=== PATIENT | male | born 1955 | race Caucasian/White ===

== ENCOUNTER → 2019-02-05 | Day surgery (SDC) | payer BC ==
[~2019-02-05] MED LIST: FENTANYL CITRATE/PF 100MCG/2 ML INJ ONE; GLUCAGON FOR INJ 1 MG VIAL ONE; HYOSCYAMINE 0.125 MG TAB ONE; MELOXICAM7.5 MG PO; MIDAZOLAM HCL 2 MG/2 ML VIAL ONE; MULTI-VITAMIN1 EACH; ONDANSETRON HCL INJ 2MG/ML 2ML 2 MG/ML VIAL ONE; PROPOFOL IV EMULSION 10 MG/ML 50 ML VIAL ONE; Z.0.OMEPRAZOLE40 MG PO
--- OUTSIDE RECORDS SUMMARY | 2019-02-05 06:04 | XMS REPORT | Continuity of Care Document ---
Author Author [employer] Organization [employer] Address Unknown Phone Unavailable Care Team Providers Care Geodesist Name Role Phone [employer] Unavailable Unavailable Problems Problem Status Onset Date Classification Date Reported Comments Source UTI Active 03/25/2015 [facility] ENLARGE PROSTATE W/URINARY RETENTION, IC Active 01/12/2015 [facility] ENLARGED PROSTATE Active 01/12/2015 [facility] URINE RETENTION Active 12/31/2014 [facility] ACUTE URINARY OBSTRCTION Active 12/31/2014 [facility] Final: Urinary tract infection, site not specified 03/31/2015 [facility] Bleeding hemorrhoids (disorder) Resolved Problem 03/31/2015 [facility] Polyp of colon (disorder) Active Problem 03/31/2015 [facility] Large prostate (finding) Active Problem 03/31/2015 [facility] Gastroesophageal reflux disease (disorder) Active Problem 03/31/2015 [facility] Rectal hemorrhage (disorder) Resolved Problem 03/31/2015 [facility] Final: 02/13/2015 [facility] BPH W URINARY OBS/LUTS Active [facility] URINARY TRACT INFECTION, SITE NOT SPECIF Active [facility] Medications Medication Details Route Status Patient Instructions Ordering Provider Order Date Source Saline Flush 0.9% 10 mL, Route: IVP, Drug Form: INJ, Dosing Weight 92.727, kg, Q8H, Start date: 03/28/15 16:00:00, Duration: 30 day, Stop date: 04/27/15 8:00:00Notes: (Same as: BD Posiflush) Inactive 03/28/2015 [facility] cefepime 2 gm, IVPB, [id number], 0 Refill(s) Active 03/28/2015 [facility] lidocaine 1% 50 mg, 5 mL, Route: INTRADERM, Drug Form: INJ, Dosing Weight 92.727, kg, ONCALL, Start date: 03/28/15 12:00:00, Duration: 30 day, Stop date: 04/27/15 10:59:00Notes: (Same as: Xylocaine) Inactive 03/28/2015 [facility] Saline Flush 0.9% 10 mL, Route: IVP, Drug Form: INJ, Dosing Weight 92.727, kg, PRN, PRN Line Flush, Start date: 03/28/15 11:22:00, Duration: 30 day, Stop date: 04/27/15 10:21:00Notes: (Same as: BD Posiflush) Inactive 03/28/2015 [facility] influenza virus vaccine, inactivated 0.5 mL, Route: IM, Drug Form: SUSP, Daily, Start date: 03/26/15 9:00:00, Duration: 1 doses or times, Stop date: 03/26/15 9:00:00Notes: (Same as: Fluzone Quadrivalent) For 3 years of age and older (0.5 mL IM) Shake well before use Inactive 03/26/2015 [facility] cefepime 2 gm, Route: IVPB, Drug form: INJ, [id number], Dosing Weight 92.727, kg, (CrCl 30 - 49 ml/min, LOG PREPARER infection or neutropenic fever), Start date: 03/25/15 20:00:00, Duration: 30 day, Stop date: 04/24/15 8:00 :00Notes: (Same as: Maxipime) MEDICATION WASTE Product Size: 2000 mg Product Wasted: ___ mg No Longer Active 03/26/2015 [facility] Acetaminophen 325 MG Oral Tablet [Tylenol] 325 mg=1 tab, PO, Q4H, PRN Pain Active 03/25/2015 [facility] Docusate 100 mg, 1 cap, Route: PO, Drug form: CAP, BID, Dosing Weight 92.727, kg, PRN Constipation, Start date: 03/25/15 12:45:00, Duration: 30 day, Stop date: 04/24/15 12:44:00Notes: (Same as: Colace) (Do Not Crush) No Longer Active 03/25/2015 [facility] Acetaminophen 650 mg, 2 tab, Route: PO, Drug form: TAB, Q6H, Dosing Weight 92.727, kg, PRN Pain 1-3/Temp > 100.4 F, Start date: 03/25/15 12:44:00, Duration: 30 day, Stop date: 04/24/15 12:43:00Notes: Do not exceed 4 gm/day. (Same as: Tylenol) No Longer Active 03/25/2015 [facility] hyoscyamine 0.125 mg sublingual tablet 0.125 mg=1 tab, SL, Q4H, PRN Bladder Spasm, # 126 tab, 0 Refill(s) Active 02/10/2015 [facility] docusate sodium 100 mg oral capsule 100 mg=1 cap, PO, BID, # 60 cap, 0 Refill(s) Active 02/10/2015 [facility] oxybutynin 5 mg oral tablet 5 mg=1 tab, PO, TID, # 30 tab, 0 Refill(s) Active 02/10/2015 [facility] Robaxin 1,000 mg, 2 tab, Route: PO, Drug form: TAB, Q8H, Dosing Weight 90.909, kg, Priority: NOW, Start date: 02/09/15 16:18:00, Duration: 30 day, Stop date: 03/11/15 16:00:00Notes: (Same as:Robaxin) No Longer Active 02/09/2015 [facility] Acetaminophen 325 MG / Hydrocodone Bitartrate 5 MG Oral Tablet [[place] 5/325] 2 tab, Route: PO, Drug Form: TAB, Dosing Weight 90.909, kg, Q4H, PRN Pain Score 7-10, Start date: 02/09/15 9:16:00, Duration: 30 day, Stop date: 03/11/15 9:15:00Notes: (Same as: [place] 325/5) Do not exceed 4gm/day of acetaminophen. No Longer Active 02/09/2015 [facility] Acetaminophen 325 MG / Hydrocodone Bitartrate 5 MG Oral Tablet [[place] 5/325] 1 tab, Route: PO, Drug Form: TAB, Dosing Weight 90.909, kg, Q4H, PRN Pain Score 4-6, Start date: 02/09/15 9:15:00, Duration: 30 day, Stop date: 03/11/15 9:14:00Notes: (Same as: [place] 325/5) Do not exceed 4gm/day of acetaminophen. No Longer Active 02/09/2015 [facility] Oxycodone Hydrochloride 5 MG Oral Tablet 10 mg, 2 tab, Route: PO, Drug form: TAB, Q4H, Dosing Weight 90.909, kg, PRN Pain Score 7-10, Start date: 02/09/15 5:41:00, Duration: 30 day, Stop date: 03/11/15 5:40:00Notes: (Same as: Roxicodone) Inactive 02/09/2015 [facility] Oxycodone Hydrochloride 5 MG Oral Tablet 5 mg, 1 tab, Route: PO, Drug form: TAB, Q4H, Dosing Weight 90.909, kg, PRN Pain Score 4-6, Start date: 02/09/15 5:40:00, Duration: 30 day, Stop date: 03/11/15 5:39:00Notes: (Same as: Roxicodone) Inactive 02/09/2015 [facility] nitrofurantoin macrocrystals-monohydrate 100 mg oral capsule (Macrobid) 100 mg=1 cap, PO, BID Active 02/09/2015 [facility] sennosides, ALF 17.2 mg, 2 tab, Route: PO, Drug Form: TAB, Dosing Weight 90.909, kg, Bedtime, Start date: 02/08/15 21:00:00, Duration: 30 day, Stop date: 03/09/15 21:00:00Notes: (Same as: Senokot) No Longer Active 02/09/2015 [facility] Tylenol 1,000 mg, 100 mL, Route: IV, Drug form: INJ, Q6H, Dosing Weight 90.909, kg, Start date: 02/08/15 18:00:00, Duration: 30 day, Stop date: 03/10/15 12:00:00Notes: Infuse over 15 minutes Do not exceed 4gm/day of acetaminophen MEDICATION WASTE Product Size: 1000 mg Product Wasted: ___ mg No Longer Active 02/08/2015 [facility] docusate sodium 100 mg oral capsule 100 mg, 1 cap, Route: PO, Drug form: CAP, BID, Dosing Weight 90.909, kg, Start date: 02/08/15 17:00:00, Duration: 30 day, Stop date: 03/10/15 9:00:00Notes: (Same as: Colace) (Do Not Crush) No Longer Active 02/08/2015 [facility] Docusate 100 mg, 1 cap, Route: PO, Drug form: CAP, BID, Dosing Weight 90.909, kg, Start date: 02/08/15 17:00:00, Duration: 30 day, Stop date: 03/10/15 9:00:00Notes: (Same as: Colace) (Do Not Crush) Inactive 02/08/2015 [facility] fosaprepitant + Sodium Chloride 0.9% IV 150 mL 150 mg, Route: IV, ONCE, Start date: 02/08/15 13:50:00, Stop date: 02/08/15 13:50:00Notes: Same as: Emjimmy MEDICATION WASTE Product Size: 150 mg Product Wasted: ___ mg Inactive 02/08/2015 [facility] Hydromorphone 0.5 mg, 0.25 mL, Route: IV, Drug form: INJ, Q5Min, Dosing Weight 90.909, kg, PRN Pain Score 6-10, Start date: 02/08/15 13:18:00, Duration: 4 doses or times, Stop date: 02/09/15 0:00:00Notes: Same as: Dilaudid Inactive 02/08/2015 [facility] aprepitant 150 mg, Route: IV, ONCE, Dosing Weight 90.909, kg, Start date: 02/08/15 13:02:00, Stop date: 02/08/15 13:02:00 Inactive 02/08/2015 [facility] Levsin SL 0.125 mg, 1 tab, Route: SL, Drug form: TAB, Q4H, Dosing Weight 90.909, kg, PRN Bladder Spasm, Priority: STAT, Start date: 02/08/15 12:21:00, Duration: 30 day, Stop date: 03/10/15 12:00:00Notes: (Same as: Levsin) Take 30 min before meal No Longer Active 02/08/2015 [facility] Ondansetron 4 mg, 2 mL, Route: IVP, Drug form: INJ, ONCE, Dosing Weight 90.909, kg, PRN Nausea & Vomiting, Start date: 02/08/15 12:03:00Notes: (Same as: Zofran) MEDICATION WASTE Product Size: 4 mg Product Wasted: ___ mg Inactive 02/08/2015 [facility] Naloxone 0.04 mg, 0.1 mL, Route: IVP, Drug form: INJ, Q2MIN, Dosing Weight 90.909, kg, PRN Narcotic Reversal, Start date: 02/08/15 12:03:00, Duration: 8 doses or times, Stop date: 02/09/15 0:00:00Notes: Same as Narcan Inactive 02/08/2015 [facility] Flumazenil 0.2 mg, 2 mL, Route: IVP, Drug form: INJ, PRN, Dosing Weight 90.909, kg, PRN Benzodiazepine Reversal, Initial dose, Start date: 02/08/15 12:03:00, Duration: 30 day, Stop date: 03/10/15 12:02:00Notes: (Same as: Romazicon) Inactive 02/08/2015 [facility] Clindamycin 600 mg, 4 mL, Route: IVPB, ABXQ8H, Dosing Weight 90.909, kg, Start date: 02/08/15 12:00:00, Duration: 3 doses or times, Stop date: 02/09/15 9:00:00Notes: (clindamycin 150 mg/1 ml (600 mg/4 ml VL) INJ) (Same As: Cleocin) No Longer Active 02/08/2015 [facility] Saline Flush 0.9% 10 ml, Route: IVP, Drug Form: INJ, Dosing Weight 90.909, kg, PRN, PRN Line Flush, Start date: 02/08/15 11:52:00, Duration: 30 day, Stop date: 03/10/15 11:51:00Notes: (Same as: BD Posiflush) No Longer Active 02/08/2015 [facility] Sodium Chloride 0.154 MEQ/ML Injectable Solution 1,000 mL, Rate: 75 ml/hr, Infuse over: 13.3 hr, Route: IV, Dosing Weight 90.909 kg, Total Volume: 1,000, Start date: 02/08/15 11:52:00, Duration: 30 day, Stop date: 03/10/15 11:51:00 No Longer Active 02/08/2015 [facility] Ondansetron 4 mg, 2 mL, Route: IVP, Drug form: INJ, Q6H, Dosing Weight 90.909, kg, PRN Nausea & Vomiting, Start date: 02/08/15 11:52:00, Duration: 30 day, Stop date: 03/10/15 11:51:00Notes: (Same as: Zofran) MEDICATION WASTE Product Size: 4 mg Product Wasted: ___ mg No Longer Active 02/08/2015 [facility] oxybutynin 5 mg, 1 tab, Route: PO, Drug form: TAB, TID, Dosing Weight 90.909, kg, Start date: 02/08/15 11:52:00, Duration: 30 day, Stop date: 03/10/15 13:00:00Notes: Same as: Ditropan) No Longer Active 02/08/2015 [facility] Gentamicin Sulfate (ALF) 210 mg, Route: IVPB, ONCE, Dosing Weight 90.909, kg, Start date: 02/08/15 9:21:00, Stop date: 02/08/15 9:21:00 Inactive 02/08/2015 [facility] Fentanyl / ropivacaine Route: EPIDURAL, Continuous Rate: 6, ml/hr, Infusion site: Thoracic, BIOPHYSICS TEACHER dose 3 mL, BIOPHYSICS TEACHER dose lockout: 30 minutes, 1 Hour limit: 18 mL, Clinician Bolus: 5.05 mL, 200, mL, Start date: 02/08/15 9:18:00, Duration: 30, day, Drug Form: INJ, Total volume: 20...Notes: (Same as Naropin-Sublimaze) No Longer Active 02/08/2015 [facility] Naloxone 0.1 mg, 0.25 mL, Route: IVP, Drug form: INJ, Q2MIN, Dosing Weight 90.909, kg, PRN Narcotic Reversal, Start date: 02/08/15 9:18:00, Duration: 8 doses or times, Stop date: 02/09/15 0:00:00Notes: Same as Narcan No Longer Active 02/08/2015 [facility] Ondansetron 4 mg, 2 mL, Route: IVP, Drug form: INJ, Q8H, Dosing Weight 90.909, kg, PRN Nausea & Vomiting, Start date: 02/08/15 9:17:00, Duration: 30 day, Stop date: 03/10/15 9:16:00Notes: (Same as: Zofran) MEDICATION WASTE Product Size: 4 mg Product Wasted: ___ mg Inactive 02/08/2015 [facility] Tramadol 50 mg, 1 tab, Route: PO, Drug form: TAB, Q6H, Dosing Weight 90.909, kg, PRN Pain Score 7-10, Start date: 02/08/15 9:17:00, Duration: 30 day, Stop date: 03/10/15 9:16:00Notes: Not to exceed 400mg/day. (Same As: Ultram) Inactive 02/08/2015 [facility] Acetaminophen 1,000 mg, 100 mL, Route: IVPB, Drug form: INJ, Q6H, Dosing Weight 90.909, kg, PRN Pain Score 4-6, Start date: 02/08/15 9:17:00, Duration: 30 day, Stop date: 03/10/15 9:16:00Notes: Infuse over 15 jasper madonna Do not exceed 4gm/day of acetaminophen MEDICATION WASTE Product Size: 1000 mg Product Wasted: ___ mg Inactive 02/08/2015 [facility] Clindamycin 600 mg, Route: IVPB, ONCE, Dosing Weight 90.909, kg, Start date: 02/08/15 9:09:00, Stop date: 02/08/15 9:09:00 Inactive 02/08/2015 [facility] Cleocin HCl + Sodium Chloride 0.9% IV 100 mL 600 mg, 4 mL, Route: IVPB, PRE OP, Priority: STAT, Start date: 02/08/15 7:18:00, Duration: 1 day, Stop date: 02/09/15 7:17:00Notes: (clindamycin 150 mg/1 ml (600 mg/4 ml VL) INJ) (Same As: Cleocin) No Longer Active 02/08/2015 [facility] Phenergan 12.5 mg, 0.5 mL, Route: IVPB, Drug form: INJ, ONCE, Dosing Weight 87.727, kg, PRN Nausea & Vomiting, Start date: 01/01/15 10:58:00, Stop date: 01/31/15 10:57:00Notes: Do not give IV push. (Same as: Phenergan) Inactive 01/01/2015 [facility] magnesium citrate 300 ml, Route: PO, Drug Form: LIQ, Dosing Weight 87.727, kg, ONCE, Start date: 01/01/15 10:12:00, Stop date: 01/01/15 10:12:00Notes: (Same as: Citrate of Magnesia) Inactive 01/01/2015 [facility] polyethylene glycol 3350 oral powder for reconstitution 17 gm, PO, Daily, X 14 day, # 255 gm, 0 Refill(s) Active 01/01/2015 [facility] tamsulosin 0.4 mg oral capsule 0.4 mg=1 cap, PO, Daily, # 30 cap, 0 Refill(s) Active 01/01/2015 [facility] acetaminophen 325 mg oral tablet 650 mg=2 tab, PO, Q4H, PRN Pain 1-3/Temp > 100.4 F, 0 Refill(s) Active 01/01/2015 [facility] Miralax 17 gm, 1 pkt, Route: PO, Drug form: PWDR, Daily, Dosing Weight 87.727, kg, Start date: 01/01/15 9:00:00, Duration: 30 day, Stop date: 01/30/15 9:00:00Notes: Dissolve in 8 oz of water or juice. (Same as: Miralax) Inactive 01/01/2015 [facility] 1/2 NS 1,000 mL 1,000 mL, Rate: 200 ml/hr, Infuse over: 5 hr, Route: IV, Dosing Weight 87.727 kg, Total Volume: 1,000, Start date: 12/31/14 22:53:00, Duration: 30 day, Stop date: 01/30/15 22:52:00 No Longer Active 01/01/2015 [facility] NS 1,000 mL 1,000 mL, Rate: 200 ml/hr, Infuse over: 5 hr, Route: IV, Dosing Weight 87.727 kg, Total Volume: 1,000, Start date: 12/31/14 22:36:00, Duration: 30 day, Stop date: 01/30/15 22:35:00 Inactive 01/01/2015 [facility] Acetaminophen 325 MG / Hydrocodone Bitartrate 5 MG Oral Tablet 1 tab, Route: PO, Drug Form: TAB, Dosing Weight 87.727, kg, Q4H, PRN Pain Score 4-6, Start date: 12/31/14 22:35:00, Duration: 30 day, Stop date: 01/30/15 22:34:00Notes: (Same as: [place] 325/5) Do not exceed 4gm/day of acetaminophen. No Longer Active 01/01/2015 [facility] Docusate 100 mg, 1 cap, Route: PO, Drug form: CAP, BID, Dosing Weight 87.727, kg, PRN Constipation, Start date: 12/31/14 22:35:00, Duration: 30 day, Stop date: 01/30/15 22:34:00Notes: (Same as: Colace) (Do Not Crush) No Longer Active 01/01/2015 [facility] Ondansetron 4 mg, 2 mL, Route: IVP, Drug form: INJ, Q6H, Dosing Weight 87.727, kg, PRN Nausea & Vomiting, Start date: 12/31/14 22:35:00, Duration: 30 day, Stop date: 01/30/15 22:34:00Notes: (Same as: Zofran) MEDICATION WASTE Product Size: 4 mg Product Wasted: ___ mg No Longer Active 01/01/2015 [facility] Acetaminophen 650 mg, 2 tab, Route: PO, Drug form: TAB, Q4H, Dosing Weight 87.727, kg, PRN Pain 1-3/Temp > 100.4 F, Start date: 12/31/14 22:35:00, Duration: 30 day, Stop date: 01/30/15 22:34:00Notes: Do not exceed 4 gm/day. (Same as: Tylenol) No Longer Active 01/01/2015 [facility] Flomax 0.4 mg, 1 cap, Route: PO, Drug form: CAP, Daily, Dosing Weight 91.364, kg, Start date: 12/31/14 21:46:00, Duration: 30 day, Stop date: 01/30/15 9:00:00Notes: (Same As: Flomax) "Do Not Crush" No Longer Active 01/01/2015 [facility] Sodium Chloride 0.154 MEQ/ML Injectable Solution 1,000 mL, 1,000 ml/hr, Infuse Over: 1 hr, Route: IV, 1,000, Drug form: INJ, ONCE, Priority: STAT, Dosing Weight 91.364 kg, Start date: 12/31/14 20:22:00, Duration: 1 doses or times, Stop date: 12/31/14 20:22:00 Inactive 01/01/2015 [facility] Zofran 4 mg, Route: IVP, Drug form: INJ, ONCE, Dosing Weight 91.364, kg, Priority: STAT, Start date: 12/31/14 18:21:00, Stop date: 12/31/14 18:21:00 Inactive 12/31/2014 [facility] Morphine 4 mg, Route: IVP, Drug form: INJ, ONCE, Dosing Weight 91.364, kg, Priority: STAT, Start date: 12/31/14 18:16:00, Stop date: 12/31/14 18:16:00 Inactive 12/31/2014 [facility] Allergies, Adverse Reactions, Alerts Substance Category Reaction Severity Reaction type Status Date Reported Comments Source Flomax Assertion SV^Severe Propensity to adverse reactions to drug Active [facility] penicillins Assertion Drug allergy Active [facility] ciprofloxacin Assertion Drug allergy Active [facility] Immunizations Immunization Date Given Site Status Last Updated Comments Source influenza virus vaccine, inactivated 03/26/2015 Right Deltoid completed Elengical [facility] Results Order Name Results Value Reference Range Date Interpretation Comments Source CHEM PANEL eGFR 72 03/27/2015 Result Comment: The eGFR is calculated using the CKD-EPI formula. In most young, healthy individuals the eGFR will be >90 mL/min/1.73m2. The eGFR declines with age. An eGFR of 60-89 may be normal in some populations, particularly the elderly, for whom the CKD-EPI formula has not been extensively validated. Use of the eGFR is not recommended in the following populations:

Individuals with unstable creatinine concentrations, including patients and those with serious co-morbid conditions.

Patients with extremes in muscle mass or diet.

The data above are obtained from the National Kidney Disease Education Program (NKDEP) which additionally recommends that when the eGFR is used in patients with extremes of body mass index for purposes of drug dosing, the eGFR should be multiplied by the estimated BMI. [facility] CHEM PANEL CO2 25 24 - 32 03/27/2015 [facility] CHEM PANEL BUN 14 7 - 22 03/27/2015 [facility] CHEM PANEL Glucose Lvl 93 70 - 99 03/27/2015 [facility] CHEM PANEL Creatinine Lvl 1.1 0.5 - 1.4 03/27/2015 [facility] CHEM PANEL Sodium Lvl 138 135 - 145 03/27/2015 [facility] CHEM PANEL Potassium Lvl 4.1 3.5 - 5.1 03/27/2015 [facility] CHEM PANEL Chloride Lvl 106 95 - 109 03/27/2015 [facility] CHEM PANEL Calcium Lvl 9.1 8.5 - 10.5 03/27/2015 [facility] CHEM PANEL AGAP 11.1 10.0 - 20.0 03/27/2015 [facility] HEMATOLOGY Basophils 0.5 0.0 - 1.0 03/27/2015 [facility] HEMATOLOGY Eosinophils 2.9 0.0 - 4.0 03/27/2015 [facility] HEMATOLOGY Eosinophils # 0.2 0.0 - 0.5 03/27/2015 [facility] HEMATOLOGY Monocytes # 0.7 0.0 - 0.8 03/27/2015 [facility] HEMATOLOGY Lymphocytes # 1.5 1.0 - 5.5 03/27/2015 [facility] HEMATOLOGY Segs-Bands # 4.3 1.5 - 8.1 03/27/2015 [facility] HEMATOLOGY Segs 63.3 45.0 - 75.0 03/27/2015 [facility] HEMATOLOGY Lymphocytes 22.8 20.0 - 40.0 03/27/2015 [facility] HEMATOLOGY Monocytes 10.5 2.0 - 12.0 03/27/2015 [facility] HEMATOLOGY MCH 30.5 27.0 - 31.0 03/27/2015 [facility] HEMATOLOGY MCV 91.6 80.0 - 94.0 03/27/2015 [facility] HEMATOLOGY RDW 13.6 11.5 - 14.5 03/27/2015 [facility] HEMATOLOGY Platelet 149 133 - 450 03/27/2015 [facility] HEMATOLOGY MPV 9.7 7.4 - 10.4 03/27/2015 [facility] HEMATOLOGY MCHC 33.2 32.0 - 36.0 03/27/2015 [facility] HEMATOLOGY Hgb 16.9 14.0 - 18.0 03/27/2015 [facility] HEMATOLOGY WBC 6.8 3.7 - 10.4 03/27/2015 [facility] HEMATOLOGY RBC 5.53 4.70 - 6.10 03/27/2015 [facility] HEMATOLOGY Hct 50.7 42.0 - 54.0 03/27/2015 [facility] ELECTROLYTES AGAP 13.0 10.0 - 20.0 03/26/2015 [facility] ELECTROLYTES eGFR 85 03/26/2015 Result Comment: The eGFR is calculated using the CKD-EPI formula. In most young, healthy individuals the eGFR will be >90 mL/min/1.73m2. The eGFR declines with age. An eGFR of 60-89 may be normal in some populations, particularly the elderly, for whom the CKD-EPI formula has not been extensively validated. Use of the eGFR is not recommended in the following populations:

Individuals with unstable creatinine concentrations, including patients and those with serious co-morbid conditions.

Patients with extremes in muscle mass or diet.

The data above are obtained from the National Kidney Disease Education Program (NKDEP) which additionally recommends that when the eGFR is used in patients with extremes of body mass index for purposes of drug dosing, the eGFR should be multiplied by the estimated BMI. [facility] ELECTROLYTES Potassium Lvl 4.0 3.5 - 5.1 03/26/2015 [facility] ELECTROLYTES Sodium Lvl 138 135 - 145 03/26/2015 [facility] ELECTROLYTES Chloride Lvl 106 95 - 109 03/26/2015 [facility] ELECTROLYTES CO2 23 24 - 32 03/26/2015 [facility] ELECTROLYTES Calcium Lvl 9.1 8.5 - 10.5 03/26/2015 [facility] ELECTROLYTES Creatinine Lvl 1.0 0.5 - 1.4 03/26/2015 [facility] ELECTROLYTES Glucose Lvl 97 70 - 99 03/26/2015 [facility] ELECTROLYTES BUN 16 7 - 22 03/26/2015 [facility] HEMATOLOGY Monocytes # 0.5 0.0 - 0.8 03/26/2015 [facility] HEMATOLOGY Lymphocytes # 1.4 1.0 - 5.5 03/26/2015 [facility] HEMATOLOGY Segs-Bands # 3.1 1.5 - 8.1 03/26/2015 [facility] HEMATOLOGY Eosinophils # 0.2 0.0 - 0.5 03/26/2015 [facility] HEMATOLOGY Monocytes 10.2 2.0 - 12.0 03/26/2015 [facility] HEMATOLOGY Basophils 0.6 0.0 - 1.0 03/26/2015 [facility] HEMATOLOGY Eosinophils 3.7 0.0 - 4.0 03/26/2015 [facility] HEMATOLOGY Lymphocytes 27.1 20.0 - 40.0 03/26/2015 [facility] HEMATOLOGY Segs 58.4 45.0 - 75.0 03/26/2015 [facility] HEMATOLOGY Platelet 141 133 - 450 03/26/2015 [facility] HEMATOLOGY RDW 13.6 11.5 - 14.5 03/26/2015 [facility] HEMATOLOGY MCHC 33.3 32.0 - 36.0 03/26/2015 [facility] HEMATOLOGY MPV 9.8 7.4 - 10.4 03/26/2015 [facility] HEMATOLOGY MCV 90.0 80.0 - 94.0 03/26/2015 [facility] HEMATOLOGY MCH 30.0 27.0 - 31.0 03/26/2015 [facility] HEMATOLOGY Hct 48.0 42.0 - 54.0 03/26/2015 [facility] HEMATOLOGY RBC 5.33 4.70 - 6.10 03/26/2015 [facility] HEMATOLOGY WBC 5.3 3.7 - 10.4 03/26/2015 [facility] [facility] HEMATOLOGY Hgb 16.0 14.0 - 18.0 03/26/2015 [facility] URINE AND STOOL UA Urobilinogen <=1.0 mg/dL 0.1 - 1.0 03/25/2015 [facility] URINE AND STOOL UA Sq Epi None Seen 03/25/2015 [facility] URINE AND STOOL UA Mucus Few /LPF None Seen /LPF 03/25/2015 [facility] URINE AND STOOL UA RBC 58 0 - 2 03/25/2015 [facility] URINE AND STOOL UA WBC 32 0 - 5 03/25/2015 [facility] URINE AND STOOL UA pH 7.0 5.0 - 8.0 03/25/2015 [facility] URINE AND STOOL UA Spec Grav 1.006 <=1.030 03/25/2015 [facility] URINE AND STOOL UA Turbidity Clear (03/25/15 3:04 PM) Clear 03/25/2015 [facility] URINE AND STOOL UA Color Light Yellow *NA* (03/25/15 3:04 PM) Yellow 03/25/2015 [facility] URINE AND STOOL UA Blood Moderate *ABN* (03/25/15 3:04 PM) Negative 03/25/2015 [facility] URINE AND STOOL UA Bili Negative *NA* (03/25/15 3:04 PM) Negative 03/25/2015 [facility] URINE AND STOOL UA Ketones Negative mg/dL Negative mg/dL 03/25/2015 [facility] URINE AND STOOL UA Glucose Negative mg/dL Negative mg/dL 03/25/2015 [facility] URINE AND STOOL UA Protein Negative mg/dL Negative mg/dL 03/25/2015 [facility] URINE AND STOOL UA Nitrite Negative (03/25/15 3:04 PM) Negative 03/25/2015 [facility] URINE AND STOOL UA Leuk Est Moderate *ABN* (03/25/15 3:04 PM) Negative 03/25/2015 [facility] CHEM PANEL eGFR 83 03/25/2015 Result Comment: The eGFR is calculated using the CKD-EPI formula. In most young, healthy individuals the eGFR will be >90 mL/min/1.73m2. The eGFR declines with age. An eGFR of 60-89 may be normal in some populations, particularly the elderly, for whom the CKD-EPI formula has not been extensively validated. Use of the eGFR is not recommended in the following populations:

Individuals with unstable creatinine concentrations, including patients and those with serious co-morbid conditions.

Patients with extremes in muscle mass or diet.

The data above are obtained from the National Kidney Disease Education Program (NKDEP) which additionally recommends that when the eGFR is used in patients with extremes of body mass index for purposes of drug dosing, the eGFR should be multiplied by the estimated BMI. [facility] CHEM PANEL Calcium Lvl 8.9 8.5 - 10.5 03/25/2015 [facility] CHEM PANEL CO2 23 24 - 32 03/25/2015 [facility] CHEM PANEL BUN 18 7 - 22 03/25/2015 [facility] CHEM PANEL Creatinine Lvl 1.0 0.5 - 1.4 03/25/2015 [facility] CHEM PANEL Sodium Lvl 140 135 - 145 03/25/2015 [facility] CHEM PANEL Potassium Lvl 4.0 3.5 - 5.1 03/25/2015 [facility] CHEM PANEL Chloride Lvl 108 95 - 109 03/25/2015 [facility] CHEM PANEL Glucose Lvl 91 70 - 99 03/25/2015 [facility] CHEM PANEL AGAP 13.0 10.0 - 20.0 03/25/2015 [facility] HEMATOLOGY MPV 10.2 7.4 - 10.4 03/25/2015 [facility] HEMATOLOGY RDW 13.2 11.5 - 14.5 03/25/2015 [facility] HEMATOLOGY MCV 90.3 80.0 - 94.0 03/25/2015 [facility] HEMATOLOGY Platelet 141 133 - 450 03/25/2015 [facility] HEMATOLOGY Hct 45.9 42.0 - 54.0 03/25/2015 [facility] HEMATOLOGY MCH 29.4 27.0 - 31.0 03/25/2015 [facility] HEMATOLOGY WBC 6.0 3.7 - 10.4 03/25/2015 [facility] HEMATOLOGY MCHC 32.6 32.0 - 36.0 03/25/2015 [facility] HEMATOLOGY Hgb 15.0 14.0 - 18.0 03/25/2015 [facility] HEMATOLOGY RBC 5.08 4.70 - 6.10 03/25/2015 [facility] HEMATOLOGY Eosinophils # 0.2 0.0 - 0.5 03/25/2015 [facility] HEMATOLOGY Lymphocytes # 1.4 1.0 - 5.5 03/25/2015 [facility] HEMATOLOGY Monocytes # 0.5 0.0 - 0.8 03/25/2015 [facility] HEMATOLOGY Lymphocytes 23.0 20.0 - 40.0 03/25/2015 [facility] HEMATOLOGY Monocytes 8.3 2.0 - 12.0 03/25/2015 [facility] HEMATOLOGY Eosinophils 3.0 0.0 - 4.0 03/25/2015 [facility] HEMATOLOGY Segs-Bands # 3.9 1.5 - 8.1 03/25/2015 [facility] HEMATOLOGY Basophils 0.7 0.0 - 1.0 03/25/2015 [facility] HEMATOLOGY Segs 65.0 45.0 - 75.0 03/25/2015 [facility] CHEM PANEL Magnesium Lvl 2.1 1.8 - 2.4 02/10/2015 [facility] CHEM PANEL Phosphorus 3.6 2.5 - 4.5 02/10/2015 [facility] CHEM PANEL eGFR 60 02/10/2015 Result Comment: The eGFR is calculated using the CKD-EPI formula. In most young, healthy individuals the eGFR will be >90 mL/min/1.73m2. The eGFR declines with age. An eGFR of 60-89 may be normal in some populations, particularly the elderly, for whom the CKD-EPI formula has not been extensively validated. Use of the eGFR is not recommended in the following populations:

Individuals with unstable creatinine concentrations, including patients and those with serious co-morbid conditions.

Patients with extremes in muscle mass or diet.

The data above are obtained from the National Kidney Disease Education Program (NKDEP) which additionally recommends that when the eGFR is used in patients with extremes of body mass index for purposes of drug dosing, the eGFR should be multiplied by the estimated BMI. [facility] CHEM PANEL Calcium Lvl 8.8 8.5 - 10.5 02/10/2015 [facility] CHEM PANEL Chloride Lvl 107 95 - 109 02/10/2015 [facility] CHEM PANEL CO2 24 24 - 32 02/10/2015 [facility] CHEM PANEL Sodium Lvl 139 135 - 145 02/10/2015 [facility] CHEM PANEL Potassium Lvl 4.1 3.5 - 5.1 02/10/2015 [facility] CHEM PANEL Creatinine Lvl 1.3 0.5 - 1.4 02/10/2015 [facility] CHEM PANEL Glucose Lvl 99 70 - 99 02/10/2015 [facility] CHEM PANEL BUN 19 7 - 22 02/10/2015 [facility] CHEM PANEL AGAP 12.1 10.0 - 20.0 02/10/2015 [facility] HEMATOLOGY Platelet 132 133 - 450 02/10/2015 [facility] HEMATOLOGY MCHC 33.8 32.0 - 36.0 02/10/2015 [facility] HEMATOLOGY RDW 13.7 11.5 - 14.5 02/10/2015 [facility] HEMATOLOGY MPV 10.8 7.4 - 10.4 02/10/2015 [facility] HEMATOLOGY MCH 30.7 27.0 - 31.0 02/10/2015 [facility] HEMATOLOGY MCV 90.7 80.0 - 94.0 02/10/2015 [facility] HEMATOLOGY Hct 36.9 42.0 - 54.0 02/10/2015 [facility] HEMATOLOGY RBC 4.07 4.70 - 6.10 02/10/2015 [facility] HEMATOLOGY Hgb 12.5 14.0 - 18.0 02/10/2015 [facility] HEMATOLOGY WBC 10.8 3.7 - 10.4 02/10/2015 [facility] HEMATOLOGY Lymphocytes # 1.2 1.0 - 5.5 02/10/2015 [facility] HEMATOLOGY Monocytes # 0.9 0.0 - 0.8 02/10/2015 [facility] HEMATOLOGY Monocytes 8.7 2.0 - 12.0 02/10/2015 [facility] HEMATOLOGY Eosinophils 0.4 0.0 - 4.0 02/10/2015 [facility] HEMATOLOGY Basophils 0.1 0.0 - 1.0 02/10/2015 [facility] HEMATOLOGY Segs-Bands # 8.6 1.5 - 8.1 02/10/2015 [facility] HEMATOLOGY Segs 79.6 45.0 - 75.0 02/10/2015 [facility] HEMATOLOGY Lymphocytes 11.2 20.0 - 40.0 02/10/2015 [facility] CHEM PANEL eGFR 66 02/09/2015 Result Comment: The eGFR is calculated using the CKD-EPI formula. In most young, healthy individuals the eGFR will be >90 mL/min/1.73m2. The eGFR declines with age. An eGFR of 60-89 may be normal in some populations, particularly the elderly, for whom the CKD-EPI formula has not been extensively validated. Use of the eGFR is not recommended in the following populations:

Individuals with unstable creatinine concentrations, including patients and those with serious co-morbid conditions.

Patients with extremes in muscle mass or diet.

The data above are obtained from the National Kidney Disease Education Program (NKDEP) which additionally recommends that when the eGFR is used in patients with extremes of body mass index for purposes of drug dosing, the eGFR should be multiplied by the estimated BMI. [facility] CHEM PANEL Glucose Lvl 116 70 - 99 02/09/2015 [facility] CHEM PANEL BUN 16 7 - 22 02/09/2015 [facility] CHEM PANEL Creatinine Lvl 1.2 0.5 - 1.4 02/09/2015 [facility] CHEM PANEL Sodium Lvl 137 135 - 145 02/09/2015 [facility] CHEM PANEL Chloride Lvl 103 95 - 109 02/09/2015 [facility] CHEM PANEL CO2 22 24 - 32 02/09/2015 [facility] CHEM PANEL Potassium Lvl 4.5 3.5 - 5.1 02/09/2015 [facility] CHEM PANEL Calcium Lvl 8.8 8.5 - 10.5 02/09/2015 [facility] CHEM PANEL AGAP 16.5 10.0 - 20.0 02/09/2015 [facility] HEMATOLOGY WBC 15.7 3.7 - 10.4 02/09/2015 [facility] HEMATOLOGY Hgb 13.5 14.0 - 18.0 02/09/2015 [facility] HEMATOLOGY RBC 4.48 4.70 - 6.10 02/09/2015 [facility] HEMATOLOGY Hct 41.7 42.0 - 54.0 02/09/2015 [facility] HEMATOLOGY MCV 92.9 80.0 - 94.0 02/09/2015 [facility] HEMATOLOGY MCHC 32.4 32.0 - 36.0 02/09/2015 [facility] HEMATOLOGY MCH 30.1 27.0 - 31.0 02/09/2015 [facility] HEMATOLOGY Platelet 145 133 - 450 02/09/2015 [facility] HEMATOLOGY RDW 13.8 11.5 - 14.5 02/09/2015 [facility] HEMATOLOGY MPV 10.1 7.4 - 10.4 02/09/2015 [facility] HEMATOLOGY Segs-Bands # 14.2 1.5 - 8.1 02/09/2015 [facility] HEMATOLOGY Basophils 0.1 0.0 - 1.0 02/09/2015 [facility] HEMATOLOGY Monocytes 4.9 2.0 - 12.0 02/09/2015 [facility] HEMATOLOGY Lymphocytes 5.0 20.0 - 40.0 02/09/2015 [facility] HEMATOLOGY Segs 90.0 45.0 - 75.0 02/09/2015 [facility] HEMATOLOGY Monocytes # 0.8 0.0 - 0.8 02/09/2015 [facility] HEMATOLOGY Lymphocytes # 0.8 1.0 - 5.5 02/09/2015 [facility] CHEM PANEL eGFR 66 02/08/2015 Result Comment: The eGFR is calculated using the CKD-EPI formula. In most young, healthy individuals the eGFR will be >90 mL/min/1.73m2. The eGFR declines with age. An eGFR of 60-89 may be normal in some populations, particularly the elderly, for whom the CKD-EPI formula has not been extensively validated. Use of the eGFR is not recommended in the following populations:

Individuals with unstable creatinine concentrations, including patients and those with serious co-morbid conditions.

Patients with extremes in muscle mass or diet.

The data above are obtained from the National Kidney Disease Education Program (NKDEP) which additionally recommends that when the eGFR is used in patients with extremes of body mass index for purposes of drug dosing, the eGFR should be multiplied by the estimated BMI. [facility] CHEM PANEL Chloride Lvl 107 95 - 109 02/08/2015 [facility] CHEM PANEL CO2 25 24 - 32 02/08/2015 [facility] CHEM PANEL Sodium Lvl 142 135 - 145 02/08/2015 [facility] CHEM PANEL Potassium Lvl 3.7 3.5 - 5.1 02/08/2015 [facility] CHEM PANEL AGAP 13.7 10.0 - 20.0 02/08/2015 [facility] CHEM PANEL Calcium Lvl 8.2 8.5 - 10.5 02/08/2015 [facility] CHEM PANEL Glucose Lvl 149 70 - 99 02/08/2015 [facility] CHEM PANEL BUN 15 7 - 22 02/08/2015 [facility] CHEM PANEL Creatinine Lvl 1.2 0.5 - 1.4 02/08/2015 [facility] HEMATOLOGY RDW 13.9 11.5 - 14.5 02/08/2015 [facility] HEMATOLOGY MCHC 33.3 32.0 - 36.0 02/08/2015 [facility] HEMATOLOGY MCV 90.9 80.0 - 94.0 02/08/2015 [facility] HEMATOLOGY MCH 30.3 27.0 - 31.0 02/08/2015 [facility] HEMATOLOGY MPV 10.7 7.4 - 10.4 02/08/2015 [facility] HEMATOLOGY Platelet 155 133 - 450 02/08/2015 [facility] HEMATOLOGY WBC 13.8 3.7 - 10.4 02/08/2015 [facility] HEMATOLOGY RBC 4.69 4.70 - 6.10 02/08/2015 [facility] HEMATOLOGY Hct 42.6 42.0 - 54.0 02/08/2015 [facility] HEMATOLOGY Hgb 14.2 14.0 - 18.0 02/08/2015 [facility] HEMATOLOGY Monocytes 2.9 2.0 - 12.0 02/08/2015 [facility] HEMATOLOGY Segs 85.9 45.0 - 75.0 02/08/2015 [facility] HEMATOLOGY Lymphocytes 10.4 20.0 - 40.0 02/08/2015 [facility] HEMATOLOGY Monocytes # 0.4 0.0 - 0.8 02/08/2015 [facility] HEMATOLOGY Eosinophils # 0.1 0.0 - 0.5 02/08/2015 [facility] HEMATOLOGY Basophils 0.3 0.0 - 1.0 02/08/2015 [facility] HEMATOLOGY Segs-Bands # 11.9 1.5 - 8.1 02/08/2015 [facility] HEMATOLOGY Eosinophils 0.5 0.0 - 4.0 02/08/2015 [facility] HEMATOLOGY Lymphocytes # 1.4 1.0 - 5.5 02/08/2015 [facility] BLOOD BANK RESULTS ABO/Rh O POS 02/08/2015 [facility] BLOOD BANK RESULTS Antibody Scrn Negative (02/08/15 6:41 AM) 02/08/2015 [facility] BLOOD BANK RESULTS FFP product Product available (02/08/15 6:40 AM) 02/08/2015 [facility] BLOOD BANK RESULTS RBC product Product available (02/08/15 6:40 AM) 02/08/2015 [facility] CHEM PANEL B/C Ratio 17 6 - 25 01/31/2015 [facility] CHEM PANEL Globulin 2.9 2.0 - 4.0 01/31/2015 [facility] CHEM PANEL A/G Ratio 1.3 0.7 - 1.6 01/31/2015 [facility] CHEM PANEL Bili Total 0.9 0.2 - 1.3 01/31/2015 [facility] CHEM PANEL Alk Phos 43 39 - 136 01/31/2015 [facility] CHEM PANEL ALT 26 0 - 65 01/31/2015 [facility] CHEM PANEL Albumin Lvl 3.8 3.5 - 5.0 01/31/2015 [facility] CHEM PANEL Total Protein 6.7 6.4 - 8.4 01/31/2015 [facility] CHEM PANEL AST 17 0 - 37 01/31/2015 [facility] CHEM PANEL Magnesium Lvl 2.1 1.8 - 2.4 01/31/2015 [facility] HEMATOLOGY Eosinophils 1.7 0.0 - 4.0 01/31/2015 [facility] HEMATOLOGY Eosinophils # 0.1 0.0 - 0.5 01/31/2015 [facility] HEMATOLOGY PT 14.2 12.0 - 14.7 01/31/2015 [facility] HEMATOLOGY PTT 32.2 22.9 - 35.8 01/31/2015 [facility] HEMATOLOGY INR 1.07 0.85 - 1.17 01/31/2015 [facility] CHEM PANEL eGFR 43 01/01/2015 Result Comment: The eGFR is calculated using the CKD-EPI formula. In most young, healthy individuals the eGFR will be >90 mL/min/1.73m2. The eGFR declines with age. An eGFR of 60-89 may be normal in some populations, particularly the elderly, for whom the CKD-EPI formula has not been extensively validated. Use of the eGFR is not recommended in the following populations:

Individuals with unstable creatinine concentrations, including patients and those with serious co-morbid conditions.

Patients with extremes in muscle mass or diet.

The data above are obtained from the National Kidney Disease Education Program (NKDEP) which additionally recommends that when the eGFR is used in patients with extremes of body mass index for purposes of drug dosing, the eGFR should be multiplied by the estimated BMI. [facility] CHEM PANEL Calcium Lvl 9.0 8.5 - 10.5 01/01/2015 [facility] CHEM PANEL AGAP 14.4 10.0 - 20.0 01/01/2015 [facility] CHEM PANEL Potassium Lvl 4.4 3.5 - 5.1 01/01/2015 [facility] CHEM PANEL Sodium Lvl 145 135 - 145 01/01/2015 [facility] CHEM PANEL Chloride Lvl 116 95 - 109 01/01/2015 [facility] CHEM PANEL Glucose Lvl 108 70 - 99 01/01/2015 [facility] CHEM PANEL CO2 19 24 - 32 01/01/2015 [facility] CHEM PANEL Creatinine Lvl 1.7 0.5 - 1.4 01/01/2015 [facility] CHEM PANEL BUN 29 7 - 22 01/01/2015 [facility] CHEM PANEL Phosphorus 3.0 2.5 - 4.5 01/01/2015 [facility] CHEM PANEL Magnesium Lvl 1.9 1.8 - 2.4 01/01/2015 [facility] HEMATOLOGY RBC 5.29 4.70 - 6.10 01/01/2015 [facility] HEMATOLOGY Hct 47.1 42.0 - 54.0 01/01/2015 [facility] HEMATOLOGY Hgb 16.2 14.0 - 18.0 01/01/2015 [facility] HEMATOLOGY MCH 30.5 27.0 - 31.0 01/01/2015 [facility] HEMATOLOGY MCV 88.9 80.0 - 94.0 01/01/2015 [facility] HEMATOLOGY RDW 13.1 11.5 - 14.5 01/01/2015 [facility] HEMATOLOGY MCHC 34.3 32.0 - 36.0 01/01/2015 [facility] HEMATOLOGY MPV 9.5 7.4 - 10.4 01/01/2015 [facility] HEMATOLOGY Platelet 145 133 - 450 01/01/2015 [facility] HEMATOLOGY WBC 10.1 3.7 - 10.4 01/01/2015 [facility] HEMATOLOGY Eosinophils # 0.3 0.0 - 0.5 01/01/2015 [facility] HEMATOLOGY Monocytes 10.9 2.0 - 12.0 01/01/2015 [facility] HEMATOLOGY Lymphocytes 15.9 20.0 - 40.0 01/01/2015 [facility] HEMATOLOGY Segs 70.2 45.0 - 75.0 01/01/2015 [facility] HEMATOLOGY Eosinophils 2.5 0.0 - 4.0 01/01/2015 [facility] HEMATOLOGY Basophils 0.5 0.0 - 1.0 01/01/2015 [facility] HEMATOLOGY Monocytes # 1.1 0.0 - 0.8 01/01/2015 [facility] HEMATOLOGY Segs-Bands # 7.1 1.5 - 8.1 01/01/2015 [facility] HEMATOLOGY Lymphocytes # 1.6 1.0 - 5.5 01/01/2015 [facility] CHEM PANEL Albumin Lvl 4.5 3.5 - 5.0 12/31/2014 [facility] CHEM PANEL AST 45 0 - 37 12/31/2014 [facility] CHEM PANEL ALT 35 0 - 65 12/31/2014 [facility] CHEM PANEL Alk Phos 46 39 - 136 12/31/2014 [facility] CHEM PANEL Bili Total 0.8 0.2 - 1.3 12/31/2014 [facility] CHEM PANEL Bili Direct 0.1 0.0 - 0.3 12/31/2014 [facility] CHEM PANEL Total Protein 8.4 6.4 - 8.4 12/31/2014 [facility] CHEM PANEL Globulin 3.9 2.0 - 4.0 12/31/2014 [facility] CHEM PANEL A/G Ratio 1.2 0.7 - 1.6 12/31/2014 [facility] CHEM PANEL Bili Indirect 0.7 0.0 - 1.0 12/31/2014 [facility] CHEM PANEL eGFR 11 12/31/2014 Result Comment: The eGFR is calculated using the CKD-EPI formula. In most young, healthy individuals the eGFR will be >90 mL/min/1.73m2. The eGFR declines with age. An eGFR of 60-89 may be normal in some populations, particularly the elderly, for whom the CKD-EPI formula has not been extensively validated. Use of the eGFR is not recommended in the following populations:

Individuals with unstable creatinine concentrations, including patients and those with serious co-morbid conditions.

Patients with extremes in muscle mass or diet.

The data above are obtained from the National Kidney Disease Education Program (NKDEP) which additionally recommends that when the eGFR is used in patients with extremes of body mass index for purposes of drug dosing, the eGFR should be multiplied by the estimated BMI. [facility] CHEM PANEL CO2 20 24 - 32 12/31/2014 [facility] CHEM PANEL Calcium Lvl 10.5 8.5 - 10.5 12/31/2014 [facility] CHEM PANEL Chloride Lvl 112 95 - 109 12/31/2014 [facility] CHEM PANEL Potassium Lvl 5.0 3.5 - 5.1 12/31/2014 [facility] CHEM PANEL Sodium Lvl 147 135 - 145 12/31/2014 [facility] CHEM PANEL BUN 64 7 - 22 12/31/2014 [facility] CHEM PANEL Creatinine Lvl 5.3 0.5 - 1.4 12/31/2014 [facility] CHEM PANEL Glucose Lvl 101 70 - 99 12/31/2014 [facility] CHEM PANEL AGAP 20.0 10.0 - 20.0 12/31/2014 [facility] HEMATOLOGY MPV 9.4 7.4 - 10.4 12/31/2014 [facility] HEMATOLOGY WBC 10.5 3.7 - 10.4 12/31/2014 [facility] HEMATOLOGY RBC 5.68 4.70 - 6.10 12/31/2014 [facility] HEMATOLOGY MCV 91.6 80.0 - 94.0 12/31/2014 [facility] HEMATOLOGY MCH 30.7 27.0 - 31.0 12/31/2014 [facility] HEMATOLOGY MCHC 33.5 32.0 - 36.0 12/31/2014 [facility] HEMATOLOGY Hgb 17.4 14.0 - 18.0 12/31/2014 [facility] HEMATOLOGY Hct 52.0 42.0 - 54.0 12/31/2014 [facility] HEMATOLOGY RDW 13.0 11.5 - 14.5 12/31/2014 [facility] HEMATOLOGY Platelet 153 133 - 450 12/31/2014 [facility] HEMATOLOGY Segs 79.0 45.0 - 75.0 12/31/2014 [facility] HEMATOLOGY Eosinophils # 0.3 0.0 - 0.5 12/31/2014 [facility] HEMATOLOGY Segs-Bands # 8.3 1.5 - 8.1 12/31/2014 [facility] HEMATOLOGY Eosinophils 2.7 0.0 - 4.0 12/31/2014 [facility] HEMATOLOGY Basophils 0.4 0.0 - 1.0 12/31/2014 [facility] HEMATOLOGY Lymphocytes # 1.1 1.0 - 5.5 12/31/2014 [facility] HEMATOLOGY Monocytes # 0.8 0.0 - 0.8 12/31/2014 [facility] HEMATOLOGY Lymphocytes 10.2 20.0 - 40.0 12/31/2014 [facility] HEMATOLOGY Monocytes 7.7 2.0 - 12.0 12/31/2014 [facility] URINE AND STOOL UA Color Yellow *NA* (12/31/14 1:21 PM) Yellow 12/31/2014 [facility] URINE AND STOOL UA Bili Negative *NA* (12/31/14 1:21 PM) Negative 12/31/2014 [facility] URINE AND STOOL UA Ketones Negative *NA* (12/31/14 1:21 PM) Negative 12/31/2014 [facility] URINE AND STOOL UA Glucose Negative (12/31/14 1:21 PM) Negative 12/31/2014 [facility] URINE AND STOOL UA Blood Trace *ABN* (12/31/14 1:21 PM) Negative 12/31/2014 [facility] URINE AND STOOL UA Urobilinogen 0.2 0.1 - 1.0 12/31/2014 [facility] URINE AND STOOL UA Nitrite Negative (12/31/14 1:21 PM) Negative 12/31/2014 [facility] URINE AND STOOL UA Spec Grav 1.010 <=1.030 12/31/2014 [facility] URINE AND STOOL UA Turbidity Clear (12/31/14 1:21 PM) Clear 12/31/2014 [facility] URINE AND STOOL UA pH 6.0 5.0 - 8.0 12/31/2014 [facility] URINE AND STOOL UA Protein Negative (12/31/14 1:21 PM) Negative 12/31/2014 [facility] URINE AND STOOL UA Leuk Est Negative (12/31/14 1:21 PM) Negative 12/31/2014 [facility] URINE AND STOOL Micro? Performed (12/31/14 1:21 PM) 12/31/2014 [facility] URINE AND STOOL UA RBC 0-2 /HPF 0 - 2 12/31/2014 [facility] URINE AND STOOL UA Bacteria Occasional /HPF None Seen /HPF 12/31/2014 [facility] URINE AND STOOL UA WBC 0-2 /HPF None Seen /HPF 12/31/2014 [facility] URINE AND STOOL UA Sq Epi None Seen (12/31/14 1:21 PM) Few 12/31/2014 [facility] Pathology Reports No Data Provided for This Section Diagnostic Reports Report Value Date Source Chest 1view DX Chest one view, March 28, 2015 at 12:26 p.m. HISTORY: 59-year-old man with PICC line placement. FINDINGS: 2 AP semierect views of the chest are submitted, without a prior study for comparison. The heart is not enlarged. The lungs are clear. The right hemidiaphragm is slightly elevated. No pleural effusions are seen. The bones are unremarkable. A right-sided PICC line has its tip in in the mid to distal SVC. IMPRESSION: The right-sided PICC line has its tip in the mid to distal SVC. 03/28/2015 [facility] Abdomen/Pelvis wo IV contrast CT EXAM: CT OF THE ABDOMEN AND PELVIS WITHOUT CONTRAST. DATE: Dec 31, 2014 06:26:01 PM INDICATION: Acute kidney injury. BPH. Bilateral hydronephrosis on bedside ultrasound. COMPARISON: None. TECHNIQUE: Helical acquisition of the abdomen and pelvis was obtained from the lung bases to the symphysis pubis without the administration of contrast. Axial, sagittal and coronal images were interpreted. FINDINGS: There is mild subsegmental atelectasis in the right lung base. The lungs are otherwise clear. Visualized portions of the heart and pericardium are clear. The liver, bile ducts, gallbladder, spleen, pancreas, and adrenals show no significant abnormalities. Stomach is normal. Visualized small bowel and colon have normal caliber. The appendix is normal. No mesenteric abnormalities. No free fluid or free air. There is mild nonspecific stranding around the bilateral kidneys. A punctate nonobstructive calculus is identified at the superior pole of the right kidney as seen on image 34 series 3. No right ureteral calculi are identified. No left renal or ureteral calculi identified. There is mild hydroureteronephrosis bilaterally. No definite bladder calculi identified. The bladder is decompressed by a Zelaya catheter. No definite wall thickening is demonstrated. Aorta and IVC have normal caliber. Abdominal and pelvic lymph nodes are not abnormally enlarged. No retroperitoneal abnormalities. Multilevel degenerative disc is noted, worse at L3/4. There is mild lumbar scoliosis. Fat-containing right inguinal hernia is noted. The prostate is enlarged to 5.1 cm in axial dimension and contains calcifications. IMPRESSION: Enlarged prostate. Punctate nonobstructive calculus in the right kidney superior pole. No left renal calculus. No ureteral calculi bilaterally. No bladder calculi. Mild bilateral hydroureteronephrosis is likely due to prostatic hyperplasia. Degenerative disc disease. 12/31/2014 [facility] Consultation Notes No Data Provided for This Section Discharge Summaries No Data Provided for This Section History and Physicals No Data Provided for This Section Vital Signs Vital Sign Value Date Comments Source Systolic (mm Hg) 122 03/28/2015 [facility] Diastolic (mm Hg) 83 03/28/2015 [facility] Respitory Rate 18 03/28/2015 [facility] Heart Rate 82 03/28/2015 [facility] Temperature Oral (F) 98.0 F 03/28/2015 [facility] Temperature Oral (F) 97.9 F 03/28/2015 [facility] Respitory Rate 18 03/28/2015 [facility] Systolic (mm Hg) 126 03/28/2015 [facility] Diastolic (mm Hg) 87 03/28/2015 [facility] Heart Rate 66 03/28/2015 [facility] Systolic (mm Hg) 120 03/28/2015 [facility] Diastolic (mm Hg) 80 03/28/2015 [facility] Heart Rate 60 03/28/2015 [facility] Temperature Oral (F) 98.3 F 03/28/2015 [facility] Respitory Rate 18 03/28/2015 [facility] BMI Calculated 28.51 03/25/2015 [facility] Weight 92.727 03/25/2015 [facility] Height 180.34 cm 03/25/2015 [facility] Height 180.34 cm 03/25/2015 [facility] Weight 92.784 03/25/2015 [facility] BMI Calculated 28.53 03/25/2015 [facility] Systolic (mm Hg) 130 02/10/2015 [facility] Diastolic (mm Hg) 78 02/10/2015 [facility] Temperature Oral (F) 98.1 F 02/10/2015 [facility] Heart Rate 74 02/10/2015 [facility] Respitory Rate 18 02/10/2015 [facility] Systolic (mm Hg) 136 02/10/2015 [facility] Diastolic (mm Hg) 81 02/10/2015 [facility] Respitory Rate 19 02/10/2015 [facility] Heart Rate 67 02/10/2015 [facility] Temperature Oral (F) 98 F 02/10/2015 [facility] Systolic (mm Hg) 133 02/10/2015 [facility] Diastolic (mm Hg) 84 02/10/2015 [facility] Temperature Oral (F) 97.7 F 02/10/2015 [facility] Respitory Rate 18 02/10/2015 [facility] Heart Rate 100 02/10/2015 [facility] Weight 90.909 01/31/2015 [facility] BMI Calculated 27.95 01/31/2015 [facility] Height 180.34 cm 01/31/2015 [facility] Temperature Oral (F) 98.0 F 01/01/2015 [facility] Respitory Rate 18 01/01/2015 [facility] Heart Rate 95 01/01/2015 [facility] Systolic (mm Hg) 122 01/01/2015 [facility] Diastolic (mm Hg) 85 01/01/2015 [facility] Heart Rate 79 01/01/2015 [facility] Temperature Oral (F) 97.4 F 01/01/2015 [facility] Systolic (mm Hg) 136 01/01/2015 [facility] Diastolic (mm Hg) 91 01/01/2015 [facility] Respitory Rate 18 01/01/2015 [facility] Systolic (mm Hg) 134 01/01/2015 [facility] Diastolic (mm Hg) 86 01/01/2015 [facility] Respitory Rate 20 01/01/2015 [facility] Heart Rate 73 01/01/2015 [facility] Temperature Oral (F) 98.4 F 01/01/2015 [facility] Weight 87.727 01/01/2015 [facility] BMI Calculated 27.75 01/01/2015 [facility] Height 177.8 cm 01/01/2015 [facility] Weight 91.364 12/31/2014 [facility] BMI Calculated 33.52 12/31/2014 [facility] Height 165.1 cm 12/31/2014 [facility] Encounters Location Location Details Encounter Type Encounter Number Reason For Visit Attending Provider ADM Date DC Date Status Source [facility] OBS Observation Patient [id number] Suzanne Truong 12/31/2014 01/01/2015 [facility] Inpatient [id number] Run Fernando 02/08/2015 02/10/2015 [facility] Inpatient [id number] Run Fernando 03/25/2015 03/28/2015 [facility] Procedures Procedure Code Date Perfomer Comments Source Prostatectomy [id number] 02/08/2015 [facility] Assessment and Plan Assessment and Plan Date Source Extracted from:Title: [place] Urology Author: Nessa Anderson MD Date: 03/28/15 Admitting Physician: Dr. King Date of Admission: 03/25/15 Date of Discharge: 03/28/15 Admission Diagnosis: MDR UTI Secondary Diagnosis: None Discharge Diagnosis: Same Consultations: Infectious Disease Operative Procedures: None Hospital Course: Mr. Barcenas is a pleasant 59yoM with no PMH who presented on 12/31/14 in [facility]UR x 1 day. Zelaya was placed by ER staff with >1000 cc of blood tinged urine on return. Of note, pt states prior to this acute episode he started developing LUTS with weak stream, incomplete emptying, frequency and hesitancy. These symptoms have progressed over the past 2 years. MADI at time of hospitalization revealed ~ 70g prostate. Cystoscopy uroflow and BVI obtained in Jan 2015 revealed prostatic urethra appeared with kissing lobes and prostatic urethra ~5cm in length. The median lobe was present and protruded into bladder a great deal. BVI: 150cc VV: 18cc, Qm: 1ml/s, Qavml/s. Prostate Us revealed a volume of 65.8. Thus underwent an open prostatectomy with B/L vasectomy on 02/08/2015. Since his operation he has developed dysuria, perineal discomfort and penile pain. He has been treated with numerous abx for UTI. His last UCx was 03/14/15 which grew out pseudomona resistant to PO medication. He was admitted for IV abx with recommendations for infectious disease. He was d/c home with PICC and Home health for IV medication x 2 weeks. Discharge Instructions Activity: As tolerated Diet: Regular Medications: Cefepime 2gm BID Follow-Up: Dr. King in 6 months Extracted from:Title: [place] Urology Author: Nessa Anderson MD Date: 03/28/15 Impression and Plan 59yoM with PMH of BPH/AUR s/p SPP and B scalpless vasectomy with MDR UTI requring IV abx - ID recommendations appreciated - PICC line and HH order placed. Will call PICC team and CM today in order to get HH arranged - Continue IV abx - [facility] with questions Extracted from:Title: [place] [facility]rology Author: Nessa Anderson MD Date: 03/25/15 Impression and Plan 59yoM with PMH of BPH/AUR s/p SPP and B scalpless vasectomy with UTI requring IV abx - Admit to Urology under Dr. King - Regular diet - Continue home medication - PICC line consult - ID consult for IV abx regimen and duration - [facility] with consults 03/28/2015 [facility] Extracted from:Title: APMS Consult Note Author: Miguel Gonzales MD Date: 02/09/15 Patient: BRANNON BARCENAS Age: 59 years Sex: Male : 1955 Associated Diagnoses: None Author: Miguel Gonzales MD Basic Information Source of history Referral source Reason for consultation: Complex Acute Pain Chief Complaint suprapubic postoperative pain control Catheter was discontinued this morning, overall still with good suprapubic pain control History of Present Illness The patient presents with Location: infrapubic Quality: 0/10 Severity: none Timing: preoperative Duration: none Context: none Modifying factors: none . 02/09/15: Good pain control this morning, had epidural removed at 520 as it was found to have detached from the tubing. Histories Past Medical History: Active Enlarged prostate ([id number]) GERD - Gastro-esophageal reflux disease ([id number]) Colon polyps ([id number]) Resolved Rectal bleed ([id number]): Resolved. Bleeding hemorrhoid ([id number]): Resolved. Family History: Transplant Brother Comments: 01/31/2015 12:23 - Annette Ernst RN liver High blood pressure Father Mother Non-Hodgkin's lymphoma Brother Procedure history: No active procedure history items have been selected or recorded. Social History Social and Psychosocial Habits Alcohol 01/31/2015 Use: Current Type: Liquor Frequency: 1-2 times per month Tobacco 02/08/2015 Use: Never smoker Exposure to Tobacco Smoke None Cigarette Smoking Last 365 Days No Reg Smoking Cessation Counseling No . Health Status Allergies: Allergic Reactions (All) Severity Not Documented Penicillins- No reactions were documented. Nonallergic Reactions (All) SV^Severe Flomax- No reactions were documented. Canceled/Inactive Reactions (All) Severity Not Documented Ciprofloxacin- No reactions were documented., Allergies (2) Active Reaction Flomax None Documented penicillins None Documented Current medications: (Selected) Inpatient Medications Ordered Cleocin HCl + Sodium Chloride 0.9% IV 100 mL: 600 mg, 4 mL, 208 ml/hr, IVPB, PRE OP Levsin SL: 0.125 mg, 1 tab, SL, Q4H, PRN: Bladder Spasm [place] 5/325 oral tablet: 1 tab, PO, Q4H, PRN: Pain Score 4-6 [place] 5/325 oral tablet: 2 tab, PO, Q4H, PRN: Pain Score 7-10 Robaxin: 1,000 mg, 2 tab, PO, Q8H Saline Flush 0.9%: 10 ml, IVP, PRN, PRN: Line Flush docusate sodium 100 mg oral capsule: 100 mg, 1 cap, PO, BID ondansetron: 4 mg, 2 mL, IVP, Q6H, PRN: Nausea and Vomiting oxybutynin: 5 mg, 1 tab, PO, TID senna: 17.2 mg, 2 tab, PO, Bedtime Documented Medications Documented nitrofurantoin macrocrystals-monohydrate 100 mg oral capsule (Macrobid): 100 mg, 1 cap, PO, BID, Medications (10) Active Scheduled: (5) clindamycin 600 mg/4 ml INJ VL + sodium chloride 0.9% INJ 100ml (mini-bag Plus) 100 mL 600 mg 4 mL, IVPB, PRE OP docusate sodium 100 mg CAP 100 mg 1 cap, PO, BID methocarbamol 500 mg TAB 1,000 mg 2 tab, PO, Q8H oxybutynin 5 mg TAB 5 mg 1 tab, PO, TID senna 8.6 mg TAB 17.2 mg 2 tab, PO, Bedtime Continuous: (0) PRN: (5) acetaminophen-hydrocodone 325mg-5mg tab 1 tab, PO, Q4H acetaminophen-hydrocodone 325mg-5mg tab 2 tab, PO, Q4H hyoscyamine 0.125 mg SL-TAB 0.125 mg 1 tab, SL, Q4H ondansetron 4 mg/2ml INJ VL 4 mg 2 mL, IVP, Q6H sodium chloride 0.9% 10 ml flush syr BD 10 ml, IVP, PRN Problem list: All Problems Colon polyps / SNOMED CT [id number] / Confirmed Enlarged prostate / SNOMED CT [id number] / Confirmed GERD - Gastro-esophageal reflux disease / SNOMED CT [id number] / Confirmed Resolved: Bleeding hemorrhoid / SNOMED CT [id number] Resolved: Rectal bleed / SNOMED CT [id number], Active Problems (3) Colon polyps Enlarged prostate GERD - Gastro-esophageal reflux disease Review of Systems Constitutional: Negative. Cardiovascular: Negative. Eye: Negative. Ear/Nose/Mouth/Throat Respiratory: Negative. Gastrointestinal: Negative. Genitourinary: Negative except as documented in history of present illness. Musculoskeletal: Negative. Neurologic: Negative. Psychiatric: Negative. Endocrine: Negative. Hematology/Lymphatics: Negative. Immunologic: Negative. Integumentary: Negative. Physical Examination VS/Measurements Measurements from flowsheet : Measurements 02/08/2015 06:39 Dosing Weight Difference Percent In Error % Normal (In Error) , Vital Signs (last 24 hrs) Last Charted Temp Oral 98.1 DegF (FEB 09:) Heart Rate Peripheral 83 bpm (FEB 09:) Resp Rate 18 BRMIN (FEB 09:) SBP 122 mmHg (FEB 09:) DBP 78 mmHg (FEB 09:) General: Alert and oriented, No acute distress. Eye: Pupils are equal, round and reactive to light. HENT: Normocephalic. Neck: Supple. Respiratory: Lungs are clear to auscultation. Cardiovascular: Normal rate. Gastrointestinal: Soft, Non-tender, Non-distended. Lymphatics: No lymphadenopathy neck, axilla, groin. Musculoskeletal Normal range of motion. Normal strength. No tenderness. No swelling. No deformity. Normal gait. Integumentary: Warm, Dry, Pendroy. Neurologic: Alert, Oriented, Normal sensory, Normal motor function, No focal deficits, Cranial Nerves II-XII are grossly intact. Cognition and Speech: Oriented, Speech clear and coherent, Functional cognition intact. Psychiatric: Cooperative, Appropriate mood and affect, Normal judgment. Review / Management Results review: Labs (Last four charted values) WBC H 15.7 (FEB 09) H 13.8 (FEB 08) 8.1 (JAN 31) Hgb L 13.5 (FEB 09) 14.2 (FEB 08) 15.6 (JAN 31) Hct L 41.7 (FEB 09) 42.6 (FEB 08) 47.3 (JAN 31) Plt 145 (FEB 09) 155 (FEB 08) 167 (JAN 31) Na 137 (FEB 09) 142 (FEB 08) 143 (JAN 31) K 4.5 (FEB 09) 3.7 (FEB 08) 4.3 (JAN 31) CO2 L 22 (FEB 09) 25 (FEB 08) 27 (JAN 31) Cl 103 (FEB 09) 107 (FEB 08) 106 (JAN 31) Cr 1.2 (FEB 09) 1.2 (FEB 08) 1.1 (JAN 31) BUN 16 (FEB 09) 15 (FEB 08) 19 (JAN 31) Glucose Random H 116 (FEB 09) H 149 (FEB 08) L 67 (JAN 31) Mg 2.1 (JAN 31) Ca 8.8 (FEB 09) L 8.2 (FEB 08) 9.3 (JAN 31) PT 14.2 (JAN 31) INR 1.07 (JAN 31) PTT 32.2 (JAN 31) . Chest x-ray results ECG interpretation Impression and Plan Diagnosis 59 yo M with PMH of BPH and h/o prostitis, with resolving REYNOLD. Pt presented here for open suprapubic prostetectomy. APMS consulted for preoperative in regional block area thoracic (T10-11 epidural space) epidual for postoperative abd/pelvic pain and post-op pain control . Course: Progressing as expected. Orders Ropivicaine 0.1% with Fentantyl 2mcg @ 6ml/hr, [employer] TE[employer]ER 3ml Q30 min, total lockout 18ml/hr. Clinician colus 5ml.. Diagnosis Education and Follow-up: Counseled: Regarding treatment, Regarding medications. Plan: Multimodal Pain Control -Epidural discontinued this morning as the tubing became detached -Will discontinue tylenol and oxycodone -Start [place] 5mg tab, give 1 tab q4H prn for pain score 4-6, give 2 tabs q4h prn for pain score 7-10 -Start Robaxin 1000mg q8H [facility]MS will continue to follow. Thank you for the consult. Please call [phone] with questions. Addendum by Miguel Gonzales MD on 02/10/2015 08:44 APMS will sign off. No neurological deficits. Addendum by Jonny Chapa MD on 02/12/2015 11:05 I saw and examined the patient and discussed plan of care with the resident. I have reviewed the note bellow and agree with the history, physical examination findings, assessment and plan of care. Extracted from:Title: [facility]MS Consult Note Author: Joseluis Mcneal MD Date: 02/08/15 Patient: BRANNON BARCENAS Age: 59 years Sex: Male : 1955 Associated Diagnoses: None Author: Joseluis Mcneal MD Basic Information Source of history Referral source Reason for consultation: Complex Acute Pain Chief Complaint suprapubic postoperative pain control History of Present Illness The patient presents with Location: infrapubic Quality: 0/10 Severity: none Timing: preoperative Duration: none Context: none Modifying factors: none . Histories Past Medical History: Active Enlarged prostate ([id number]) GERD - Gastro-esophageal reflux disease ([id number]) Colon polyps ([id number]) Resolved Rectal bleed ([id number]): Resolved. Bleeding hemorrhoid ([id number]): Resolved. Family History: Transplant Brother Comments: 01/31/2015 12:23 - Annette Ernst RN liver High blood pressure Father Mother Non-Hodgkin's lymphoma Brother Procedure history: No active procedure history items have been selected or recorded. Social History Social and Psychosocial Habits Alcohol 01/31/2015 Use: Current Type: Liquor Frequency: 1-2 times per month Tobacco 02/08/2015 Use: Never smoker Exposure to Tobacco Smoke None Cigarette Smoking Last 365 Days No Reg Smoking Cessation Counseling No . Health Status Allergies: Allergic Reactions (All) Severity Not Documented Penicillins- No reactions were documented. Nonallergic Reactions (All) SV^Severe Flomax- No reactions were documented. Canceled/Inactive Reactions (All) Severity Not Documented Ciprofloxacin- No reactions were documented., Allergies (2) Active Reaction Flomax None Documented penicillins None Documented Current medications: (Selected) Inpatient Medications Ordered Cleocin HCl + Sodium Chloride 0.9% IV 100 mL: 600 mg, 4 mL, 208 ml/hr, IVPB, PRE OP Ropivacaine 0.1% + fentaNYL 2 mcg/ml Epidural CADD 200 mL: 6 ml/hr, EPIDURAL, Stop: 03/10/15 9:17:00 acetaminophen: 1,000 mg, 100 mL, 400 ml/hr, IVPB, Q6H, PRN: Pain Score 4-6 docusate: 100 mg, 1 cap, PO, BID naloxone: 0.1 mg, 0.25 mL, IVP, Q2MIN, PRN: Narcotic Reversal ondansetron: 4 mg, 2 mL, IVP, Q8H, PRN: Nausea and Vomiting senna: 17.2 mg, 2 tab, PO, Bedtime tramadol: 50 mg, 1 tab, PO, Q6H, PRN: Pain Score 7-10 Prescriptions Prescribed tamsulosin 0.4 mg oral capsule: 0.4 mg, 1 cap, PO, Daily, for 30 day, 30 cap, 0 Refill(s) Documented Medications Documented acetaminophen 325 mg oral tablet: 650 mg, 2 tab, PO, Q4H, PRN: Pain 1-3/Temp > 100.4 F, 0 Refill(s), Medications (8) Active Scheduled: (3) clindamycin 600 mg/4 ml INJ VL + sodium chloride 0.9% INJ 100ml (mini-bag Plus) 100 mL 600 mg 4 mL, IVPB, PRE OP docusate sodium 100 mg CAP 100 mg 1 cap, PO, BID senna 8.6 mg TAB 17.2 mg 2 tab, PO, Bedtime Continuous: (1) Ropivacaine 0.1% - FENTanyl 2microgram/ml 200ml CADD 200 mL 200 mL, EPIDURAL, 6 ml/hr PRN: (4) Acetaminophen 10 mg/ml 100 ml IV 1,000 mg 100 mL, IVPB, Q6H naloxone 0.4 mg/ml 1ml INJ vial 0.1 mg 0.25 mL, IVP, Q2MIN ondansetron 4 mg/2ml INJ VL 4 mg 2 mL, IVP, Q8H traMADol 50 mg TAB 50 mg 1 tab, PO, Q6H Problem list: All Problems Colon polyps / SNOMED CT [id number] / Confirmed Enlarged prostate / SNOMED CT [id number] / Confirmed GERD - Gastro-esophageal reflux disease / SNOMED CT [id number] / Confirmed, Active Problems (3) Colon polyps Enlarged prostate GERD - Gastro-esophageal reflux disease Review of Systems Constitutional: Negative. Cardiovascular: Negative. Eye: Negative. Ear/Nose/Mouth/Throat Respiratory: Negative. Gastrointestinal: Negative. Genitourinary: Negative except as documented in history of present illness. Musculoskeletal: Negative. Neurologic: Negative. Psychiatric: Negative. Endocrine: Negative. Hematology/Lymphatics: Negative. Immunologic: Negative. Integumentary: Negative. Physical Examination VS/Measurements Measurements from flowsheet : Measurements 02/08/2015 06:39 Dosing Weight Difference Percent In Error % Normal (In Error) , No qualifying data available General: Alert and oriented, No acute distress. Eye: Pupils are equal, round and reactive to light. HENT: Normocephalic. Neck: Supple. Respiratory: Lungs are clear to auscultation. Cardiovascular: Normal rate. Gastrointestinal: Soft, Non-tender, Non-distended. Lymphatics: No lymphadenopathy neck, axilla, groin. Musculoskeletal Normal range of motion. Normal strength. No tenderness. No swelling. No deformity. Normal gait. Integumentary: Warm, Dry, Pendroy. Neurologic: Alert, Oriented, Normal sensory, Normal motor function, No focal deficits, Cranial Nerves II-XII are grossly intact. Cognition and Speech: Oriented, Speech clear and coherent, Functional cognition intact. Psychiatric: Cooperative, Appropriate mood and affect, Normal judgment. Review / Management Results review: Labs (Last four charted values) WBC 8.1 (JAN 31) Hgb 15.6 (JAN 31) Hct 47.3 (JAN 31) Plt 167 (JAN 31) Na 143 (JAN 31) K 4.3 (JAN 31) CO2 27 (JAN 31) Cl 106 (JAN 31) Cr 1.1 (JAN 31) BUN 19 (JAN 31) Glucose Random L 67 (JAN 31) Mg 2.1 (JAN 31) Ca 9.3 (JAN 31) PT 14.2 (JAN 31) INR 1.07 (JAN 31) PTT 32.2 (JAN 31) . Chest x-ray results ECG interpretation Impression and Plan Diagnosis 59 yo M with PMH of BPH and h/o prostitis, with resolving REYNOLD. Pt presenting here today for open suprapubic prostetectomy. APMS consulted for preoperative in regional block area thoracic (T10-11 epidural space) epidual for postoperative abd/pelvic pain. . Course: Progressing as expected. Orders Ropivicaine 0.1% with Fentantyl 2mcg @ 6ml/hr, [employer] 3ml Q30 min, total lockout 18ml/hr. Clinician colus 5ml.. Diagnosis Education and Follow-up: Counseled: Regarding treatment, Regarding medications. Addendum by Madeline Avtiia MD on 02/11/2015 08:57 Teaching Addendum: I saw and personally examined the patient and discussed the plan of care with the resident. I was physically present for the santoro portions of the procedure. 02/10/2015 [facility] Extracted from:Title: [place] Urology Author: Nessa Anderson MD Date: 01/01/15 Impression and Plan Mr. Barcenas is a pleasant 59yoM who presents in [facility] with obstructive uropahty, B HUN and REYNOLD, now improving -Continue zelaya catheter upon discharge. -Will need to be d/c home with flomax -If patient urine remains without clots and clear, he can be discharged home from urology standpoint -Will need to f/u in 1-2 weeks in urology clinic [phone] Extracted from:Title: Hospitalist History and Physical Author: Jazmin Al MD Date: 12/31/14 Assessment/Plan 59 yo M with PMH of BPH and prostitis here with abd pain in setting of acute urinary retention 2 to BPH. 1.REYNOLD (acute kidney injury) in setting of urinary retention, postrenal, will continue fluids and monitor cre 2.Urinary retention zelaya placed, will start flomax continue matching i and O 3.Hypernatremia iatrogenic, will switch to 1/2 NS 4.Constipation start stool softeners 5.Abdominal pain in setting of retention pain meds as needed Orders: acetaminophen, 650 mg, 2 tab, Route: PO, Drug form: TAB, Q4H, Dosing Weight 87.727, kg, PRN Pain 1-3/Temp > 100.4 F, Start date: 12/31/14 22:35:00, Duration: 30 day, Stop date: 01/30/15 22:34:00 acetaminophen-hydrocodone, 1 tab, Route: PO, Drug Form: TAB, Dosing Weight 87.727, kg, Q4H, PRN Pain Score 4-6, Start date: 12/31/14 22:35:00, Duration: 30 day, Stop date: 01/30/15 22:34:00 acetaminophen-hydrocodone, 2 tab, Route: PO, Drug Form: TAB, Dosing Weight 87.727, kg, Q4H, PRN Pain Score 7-10, Start date: 12/31/14 22:35:00, Duration: 30 day, Stop date: 01/30/15 22:34:00 docusate, 100 mg, 1 cap, Route: PO, Drug form: CAP, BID, Dosing Weight 87.727, kg, PRN Constipation, Start date: 12/31/14 22:35:00, Duration: 30 day, Stop date: 01/30/15 22:34:00 ondansetron, 4 mg, 2 mL, Route: IVP, Drug form: INJ, Q6H, Dosing Weight 87.727, kg, PRN Nausea and Vomiting, Start date: 12/31/14 22:35:00, Duration: 30 day, Stop date: 01/30/15 22:34:00 polyethylene glycol 3350, 17 gm, 1 pkt, Route: PO, Drug form: PWDR, Daily, Dosing Weight 87.727, kg, Start date: 01/01/15 9:00:00, Duration: 30 day, Stop date: 01/30/15 9:00:00 Sodium Chloride 0.9% IV 1,000 mL, 1,000 mL, Rate: 200 ml/hr, Infuse over: 5 hr, Route: IV, Dosing Weight 87.727 kg, Total Volume: 1,000, Start date: 12/31/14 22:36:00, Duration: 30 day, Stop date: 01/30/15 22:35:00 Admit / Condition Ambulation Ambulation Basic Metabolic Panel CDM Admission Acute Care Post ED Complete Blood Count w/ Diff and Platelet Diet Adult Regular Intake and Output Magnesium Level Patient Education AC4 Patient Education AC4 Phosphorus Level Pulse Oximetry Spot Check by Nurse Resuscitation (Code) Status Vital Signs Weigh patient AC4 Prophylaxis scd Disposition pending improvement in cre 01/01/2015 [facility] Plan of Care No Data Provided for This Section Social History Social History Date Source Social History TypeResponse Alcohol Current, Type Liquor. Frequency: 1-2 times per month. Smoking Status Never smoker; Exposure to Tobacco Smoke None; Cigarette Smoking Last 365 Days No; Reg Smoking Cessation Counseling No 01/31/2015 [facility] Family History No Data Provided for This Section Advance Directives No Data Provided for This Section Functional Status No Data Provided for This Section
--- OUTSIDE RECORDS SUMMARY | 2019-02-05 06:05 | XMS REPORT | Summary of Care ---
Author [facility] Address Unknown Phone Unavailable Encounter PATRICIA Lemus(RADHIKA) [id number] Date(s): 02/08/15 - 02/10/15 [facility] [address] [facility] provided by [facility] [place] [address]- Final: Discharge Disposition: Home Attending Physician: Nick King MD Admitting Physician: Nick King MD Referring Physician: Nick King MD Vital Signs 1 2 3 Most recent to oldest [Reference Range]: 180.34 cm (01/31/15 3:17 PM) Height 1 2 3 Most recent to oldest [Reference Range]: 91.392 kg (02/10/15 4:56 AM) 93.227 kg (02/09/15 4:45 AM) Current Weight 1 2 3 Most recent to oldest [Reference Range]: 98.1 DegF (02/10/15 3:35 PM) 98 DegF (02/10/15 11:47 AM) 97.7 DegF (02/10/15 8:03 AM) Temperature Oral [96.4-99.1 DegF] 1 2 3 Most recent to oldest [Reference Range]: 130/78 mmHg (02/10/15 3:35 PM) 136/81 mmHg (02/10/15 11:47 AM) 133/84 mmHg (02/10/15 8:03 AM) Blood Pressure [90-140/60-90 mmHg] 1 2 3 Most recent to oldest [Reference Range]: 18 BRMIN (02/10/15 3:35 PM) 19 BRMIN (02/10/15 11:47 AM) 18 BRMIN (02/10/15 8:03 AM) Respiratory Rate [14-20 BRMIN] 1 2 3 Most recent to oldest [Reference Range]: 74 bpm (02/10/15 3:35 PM) 67 bpm (02/10/15 11:47 AM) 100 bpm (02/10/15 8:03 AM) Peripheral Pulse Rate [60-100 bpm] 1 2 3 Most recent to oldest [Reference Range]: 90.909 kg (01/31/15 3:17 PM) Weight 1 2 3 Most recent to oldest [Reference Range]: 27.95 m2 (01/31/15 3:17 PM) Body Mass Index Problem List Condition Effective Dates Status Health Status Informant Bleeding Resolved hemorrhoid(Confirmed ) Colon Active polyps(Confirmed) Enlarged Active prostate(Confirmed) GERD - Active Gastro-esophageal reflux disease(Confirmed) Rectal Resolved bleed(Confirmed) Allergies, Adverse Reactions, Alerts Substance Reaction Severity Status Flomax SV^Severe Active penicillins Active Medications acetaminophen 1,000 mg, 100 mL, Route: IVPB, Drug form: INJ, Q6H, Dosing Weight 90.909, kg, LA N Pain Score 4-6, Start date: 02/08/15 9:17:00, Duration: 30 day, Stop date: 01/15 9:16:00 Notes: Infuse over 15 minutesDo not exceed 4gm/day of acetaminophen MEDICAT ION WASTE Product Size: 1000 mgProduct Wasted: ___ mg Start Date: 02/08/15 Stop Date: 02/08/15 Status: Discontinued aprepitant 150 mg, Route: IV, ONCE, Dosing Weight 90.909, kg, Start date: 02/08/15 13:02:00 , Stop date: 02/08/15 13:02:00 Start Date: 02/08/15 Stop Date: 02/08/15 Status: Discontinued Cleocin HCl + Sodium Chloride 0.9% IV 100 mL 600 mg, 4 mL, Route: IVPB, PRE OP, Priority: STAT, Start date: 02/08/15 7:18:00, Duration: 1 day, Stop date: 02/09/15 7:17:00 Notes: (clindamycin 150 mg/1 ml (600 mg/4 ml VL) INJ) (Same As: Cleocin) Start Date: 02/08/15 Stop Date: 02/10/15 Status: Discontinued clindamycin 600 mg, Route: IVPB, ONCE, Dosing Weight 90.909, kg, Start date: 02/08/15 9:09:0 0, Stop date: 02/08/15 9:09:00 Start Date: 02/08/15 Stop Date: 02/08/15 Status: Completed clindamycin + Sodium Chloride 0.9% IV 100 mL 600 mg, 4 mL, Route: IVPB, ABXQ8H, Dosing Weight 90.909, kg, Start date: 5 12:00:00, Duration: 3 doses or times, Stop date: 02/09/15 9:00:00 Notes: (clindamycin 150 mg/1 ml (600 mg/4 ml VL) INJ) (Same As: Cleocin) Start Date: 02/08/15 Stop Date: 02/09/15 Status: Completed docusate 100 mg, 1 cap, Route: PO, Drug form: CAP, BID, Dosing Weight 90.909, kg, Start d ate: 02/08/15 17:00:00, Duration: 30 day, Stop date: 03/10/15 9:00:00 Notes: (Same as: Colace) (Do Not Crush) Start Date: 02/08/15 Stop Date: 02/08/15 Status: Discontinued docusate sodium 100 mg oral capsule 100 mg, 1 cap, Route: PO, Drug form: CAP, BID, Dosing Weight 90.909, kg, Start d ate: 02/08/15 17:00:00, Duration: 30 day, Stop date: 03/10/15 9:00:00 Notes: (Same as: Colace) (Do Not Crush) Start Date: 02/08/15 Stop Date: 02/10/15 Status: Discontinued docusate sodium 100 mg oral capsule 100 mg=1 cap, PO, BID, # 60 cap, 0 Refill(s) Start Date: 02/10/15 Stop Date: 03/12/15 Status: Ordered flumazenil 0.2 mg, 2 mL, Route: IVP, Drug form: INJ, PRN, Dosing Weight 90.909, kg, PRN Bacilio zodiazepine Reversal, Initial dose, Start date: 02/08/15 12:03:00, Duration: 30 day, Stop date: 03/10/15 12:02:00 Notes: (Same as: Romazicon) Start Date: 02/08/15 Stop Date: 02/08/15 Status: Discontinued fosaprepitant + Sodium Chloride 0.9% IV 150 mL 150 mg, Route: IV, ONCE, Start date: 02/08/15 13:50:00, Stop date: 02/08/15 13:5 0:00 Notes: Same as: Emjimmy MEDICATION WASTE Product Size: 150 mgProduct Wast ed: ___ mg Start Date: 02/08/15 Stop Date: 02/08/15 Status: Completed gentamicin 210 mg, Route: IVPB, ONCE, Dosing Weight 90.909, kg, Start date: 02/08/15 9:21:0 0, Stop date: 02/08/15 9:21:00 Start Date: 02/08/15 Stop Date: 02/08/15 Status: Completed hydromorphone 0.5 mg, 0.25 mL, Route: IV, Drug form: INJ, Q5Min, Dosing Weight 90.909, kg, PRN Pain Score 6-10, Start date: 02/08/15 13:18:00, Duration: 4 doses or times, Stop date: 02/09/15 0:00:00 Notes: Same as: Dilaudid Start Date: 02/08/15 Stop Date: 02/08/15 Status: Completed hyoscyamine 0.125 mg sublingual tablet 0.125 mg=1 tab, SL, Q4H, PRN Bladder Spasm, # 126 tab, 0 Refill(s) Start Date: 02/10/15 Stop Date: 03/03/15 Status: Ordered Levsin SL 0.125 mg, 1 tab, Route: SL, Drug form: TAB, Q4H, Dosing Weight 90.909, kg, PRN B ladder Spasm, Priority: STAT, Start date: 02/08/15 12:21:00, Duration: 30 day, S top date: 03/10/15 12:00:00 Notes: (Same as: Levsin) Take 30 min before meal Start Date: 02/08/15 Stop Date: 02/10/15 Status: Discontinued naloxone 0.04 mg, 0.1 mL, Route: IVP, Drug form: INJ, Q2MIN, Dosing Weight 90.909, kg, LA N Narcotic Reversal, Start date: 02/08/15 12:03:00, Duration: 8 doses or times, Stop date: 02/09/15 0:00:00 Notes: Same as Narcan Start Date: 02/08/15 Stop Date: 02/08/15 Status: Discontinued naloxone 0.1 mg, 0.25 mL, Route: IVP, Drug form: INJ, Q2MIN, Dosing Weight 90.909, kg, LA N Narcotic Reversal, Start date: 02/08/15 9:18:00, Duration: 8 doses or times, S top date: 02/09/15 0:00:00 Notes: Same as Narcan Start Date: 02/08/15 Stop Date: 02/09/15 Status: Completed nitrofurantoin macrocrystals-monohydrate 100 mg oral capsule (Macrobid) 100 mg=1 cap, PO, BID Start Date: 02/08/15 Status: Ordered Friendship 5/325 oral tablet 2 tab, Route: PO, Drug Form: TAB, Dosing Weight 90.909, kg, Q4H, PRN Pain Score 7-10, Start date: 02/09/15 9:16:00, Duration: 30 day, Stop date: 03/11/15 9:15:0 0 Notes: (Same as: Friendship 325/5) Do not exceed 4gm/day of acetaminophen. Start Date: 02/09/15 Stop Date: 02/10/15 Status: Discontinued Friendship 5/325 oral tablet 1 tab, Route: PO, Drug Form: TAB, Dosing Weight 90.909, kg, Q4H, PRN Pain Score 4-6, Start date: 02/09/15 9:15:00, Duration: 30 day, Stop date: 03/11/15 9:14:00 Notes: (Same as: Friendship 325/5) Do not exceed 4gm/day of acetaminophen. Start Date: 02/09/15 Stop Date: 02/10/15 Status: Discontinued ondansetron 4 mg, 2 mL, Route: IVP, Drug form: INJ, Q6H, Dosing Weight 90.909, kg, PRN Nause a & Vomiting, Start date: 02/08/15 11:52:00, Duration: 30 day, Stop date: 03/10/15 11:51:00 Notes: (Same as: Cody) MEDICATION WASTE Product Size: 4 mgProduct Was xenia: ___ mg Start Date: 02/08/15 Stop Date: 02/10/15 Status: Discontinued ondansetron 4 mg, 2 mL, Route: IVP, Drug form: INJ, ONCE, Dosing Weight 90.909, kg, PRN Naus ea & Vomiting, Start date: 02/08/15 12:03:00 Notes: (Same as: Cody) MEDICATION WASTE Product Size: 4 mgProduct Was xenia: ___ mg Start Date: 02/08/15 Stop Date: 02/08/15 Status: Discontinued ondansetron 4 mg, 2 mL, Route: IVP, Drug form: INJ, Q8H, Dosing Weight 90.909, kg, PRN Nause a & Vomiting, Start date: 02/08/15 9:17:00, Duration: 30 day, Stop date: 03/10/15 9:16:00 Notes: (Same as: Cody) MEDICATION WASTE Product Size: 4 mgProduct Was xenia: ___ mg Start Date: 02/08/15 Stop Date: 02/08/15 Status: Discontinued oxybutynin 5 mg, 1 tab, Route: PO, Drug form: TAB, TID, Dosing Weight 90.909, kg, Start richelle e: 02/08/15 11:52:00, Duration: 30 day, Stop date: 03/10/15 13:00:00 Notes: Same as: Ditropan) Start Date: 02/08/15 Stop Date: 02/10/15 Status: Discontinued oxybutynin 5 mg oral tablet 5 mg=1 tab, PO, TID, # 30 tab, 0 Refill(s) Start Date: 02/10/15 Stop Date: 02/20/15 Status: Ordered oxyCODONE 5 mg immediate release 5 mg, 1 tab, Route: PO, Drug form: TAB, Q4H, Dosing Weight 90.909, kg, PRN Pain Score 4-6, Start date: 02/09/15 5:40:00, Duration: 30 day, Stop date: 03/11/15 5 :39:00 Notes: (Same as: Roxicodone) Start Date: 02/09/15 Stop Date: 02/09/15 Status: Discontinued oxyCODONE 5 mg immediate release 10 mg, 2 tab, Route: PO, Drug form: TAB, Q4H, Dosing Weight 90.909, kg, PRN Pain Score 7-10, Start date: 02/09/15 5:41:00, Duration: 30 day, Stop date: 03/11/15 5:40:00 Notes: (Same as: Roxicodone) Start Date: 02/09/15 Stop Date: 02/09/15 Status: Discontinued Robaxin 1,000 mg, 2 tab, Route: PO, Drug form: TAB, Q8H, Dosing Weight 90.909, kg, Prior ity: NOW, Start date: 02/09/15 16:18:00, Duration: 30 day, Stop date: 03/11/15 1 6:00:00 Notes: (Same as:Robaxin) Start Date: 02/09/15 Stop Date: 02/10/15 Status: Discontinued Ropivacaine 0.1% + fentaNYL 2 mcg/ml Epidural CADD 200 mL Route: EPIDURAL, Continuous Rate: 6, ml/hr, Infusion site: Thoracic, BENEFITS CLERK dose 3 mL, BENEFITS CLERK dose lockout: 30 minutes, 1 Hour limit: 18 mL, Clinician Bolus: 5.05 mL, 200, mL, Start date: 02/08/15 9:18:00, Duration: 30, day, Drug Form: INJ, Total volume: 20... Notes: (Same as Naropin-Sublimaze) Start Date: 02/08/15 Stop Date: 02/09/15 Status: Discontinued Saline Flush 0.9% 10 ml, Route: IVP, Drug Form: INJ, Dosing Weight 90.909, kg, PRN, PRN Line Flush , Start date: 02/08/15 11:52:00, Duration: 30 day, Stop date: 03/10/15 11:51:00 Notes: (Same as: BD Posiflush) Start Date: 02/08/15 Stop Date: 02/10/15 Status: Discontinued senna 17.2 mg, 2 tab, Route: PO, Drug Form: TAB, Dosing Weight 90.909, kg, Bedtime, St art date: 02/08/15 21:00:00, Duration: 30 day, Stop date: 03/09/15 21:00:00 Notes: (Same as: Senokot) Start Date: 02/08/15 Stop Date: 02/10/15 Status: Discontinued Sodium Chloride 0.9% IV 1,000 mL 1,000 mL, Rate: 75 ml/hr, Infuse over: 13.3 hr, Route: IV, Dosing Weight 90.909 kg, Total Volume: 1,000, Start date: 02/08/15 11:52:00, Duration: 30 day, Stop d ate: 03/10/15 11:51:00 Start Date: 02/08/15 Stop Date: 02/09/15 Status: Discontinued tramadol 50 mg, 1 tab, Route: PO, Drug form: TAB, Q6H, Dosing Weight 90.909, kg, PRN Pain Score 7-10, Start date: 02/08/15 9:17:00, Duration: 30 day, Stop date: 03/10/15 9:16:00 Notes: Not to exceed 400mg/day. (Same As: Ultram) Start Date: 02/08/15 Stop Date: 02/08/15 Status: Discontinued Tylenol 1,000 mg, 100 mL, Route: IV, Drug form: INJ, Q6H, Dosing Weight 90.909, kg, Star t date: 02/08/15 18:00:00, Duration: 30 day, Stop date: 03/10/15 12:00:00 Notes: Infuse over 15 minutesDo not exceed 4gm/day of acetaminophen MEDICAT ION WASTE Product Size: 1000 mgProduct Wasted: ___ mg Start Date: 02/08/15 Stop Date: 02/09/15 Status: Discontinued Results BLOOD BANK RESULTS 1 2 3 Most recent to oldest [Reference Range]: O POS *Unknown* (02/08/15 6:41 AM) ABO/Rh Negative (02/08/15 6:41 AM) Antibody Scrn Product available (02/08/15 6:40 AM) FFP product Product available (02/08/15 6:40 AM) RBC product ELECTROLYTES 1 2 3 Most recent to oldest [Reference Range]: 139 mEq/L (02/10/15 2:48 AM) 137 mEq/L (02/09/15 4:56 AM) 142 mEq/L (02/08/15 1:47 PM) Sodium Lvl [135-145 mEq/L] 4.1 mEq/L (02/10/15 2:48 AM) 4.5 mEq/L (02/09/15 4:56 AM) 3.7 mEq/L (02/08/15 1:47 PM) Potassium Lvl [3.5-5.1 mEq/L] 107 mEq/L (02/10/15 2:48 AM) 103 mEq/L (02/09/15 4:56 AM) 107 mEq/L (02/08/15 1:47 PM) Chloride Lvl [95-109 mEq/L] 24 mEq/L (02/10/15 2:48 AM) 22 mEq/L *LOW* (02/09/15 4:56 AM) 25 mEq/L (02/08/15 1:47 PM) CO2 [24-32 mEq/L] 12.1 mEq/L (02/10/15 2:48 AM) 16.5 mEq/L (02/09/15 4:56 AM) 13.7 mEq/L (02/08/15 1:47 PM) AGAP [10.0-20.0 mEq/L] CHEM PANEL 1 2 3 Most recent to oldest [Reference Range]: 1.3 mg/dL (02/10/15 2:48 AM) 1.2 mg/dL (02/09/15 4:56 AM) 1.2 mg/dL (02/08/15 1:47 PM) Creatinine Lvl [0.5-1.4 mg/dL] 60 mL/min/1.73m2 1 *NA* (02/10/15 2:48 AM) 66 mL/min/1.73m2 2 *NA* (02/09/15 4:56 AM) 66 mL/min/1.73m2 3 *NA* (02/08/15 1:47 PM) eGFR 19 mg/dL (02/10/15 2:48 AM) 16 mg/dL (02/09/15 4:56 AM) 15 mg/dL (02/08/15 1:47 PM) BUN [7-22 mg/dL] 17 (01/31/15 1:24 PM) B/C Ratio [6-25] 99 mg/dL (02/10/15 2:48 AM) 116 mg/dL *HI* (02/09/15 4:56 AM) 149 mg/dL *HI* (02/08/15 1:47 PM) Glucose Lvl [70-99 mg/dL] 6.7 g/dL (01/31/15 1:24 PM) Total Protein [6.4-8.4 g/dL] 3.8 g/dL (01/31/15 1:24 PM) Albumin Lvl [3.5-5.0 g/dL] 2.9 g/dL (01/31/15 1:24 PM) Globulin [2.0-4.0 g/dL] 1.3 (01/31/15 1:24 PM) A/G Ratio [0.7-1.6] 8.8 mg/dL (02/10/15 2:48 AM) 8.8 mg/dL (02/09/15 4:56 AM) 8.2 mg/dL *LOW* (02/08/15 1:47 PM) Calcium Lvl [8.5-10.5 mg/dL] 3.6 mg/dL (02/10/15 2:48 AM) Phosphorus [2.5-4.5 mg/dL] 2.1 mg/dL (02/10/15 2:48 AM) 2.1 mg/dL (01/31/15 1:24 PM) Magnesium Lvl [1.8-2.4 mg/dL] 26 unit/L (01/31/15 1:24 PM) ALT [0-65 unit/L] 17 unit/L (01/31/15 1:24 PM) AST [0-37 unit/L] 43 unit/L (01/31/15 1:24 PM) Alk Phos [39-136 unit/L] 0.9 mg/dL (01/31/15 1:24 PM) Bili Total [0.2-1.3 mg/dL] 1Result Comment: The eGFR is calculated using the [...] from the National Kidney Disease Education Program ( NKDEP) which additionally recommends that when the eGFR is used in patients with extremes of body mass index for purposes of drug dosing, the eGFR should be mul tiplied by the estimated BMI. 2Result Comment: The eGFR is calculated using the [...] from the National Kidney Disease Education Program ( NKDEP) which additionally recommends that when the eGFR is used in patients with extremes of body mass index for purposes of drug dosing, the eGFR should be mul tiplied by the estimated BMI. 3Result Comment: The eGFR is calculated using the [...] from the National Kidney Disease Education Program ( NKDEP) which additionally recommends that when the eGFR is used in patients with extremes of body mass index for purposes of drug dosing, the eGFR should be mul tiplied by the estimated BMI. HEMATOLOGY 1 2 3 Most recent to oldest [Reference Range]: 10.8 K/CMM *HI* (02/10/15 2:48 AM) 15.7 K/CMM *HI* (02/09/15 4:56 AM) 13.8 K/CMM *HI* (02/08/15 12:31 PM) WBC [3.7-10.4 K/CMM] 4.07 M/CMM *LOW* (02/10/15 2:48 AM) 4.48 M/CMM *LOW* (02/09/15 4:56 AM) 4.69 M/CMM *LOW* (02/08/15 12:31 PM) RBC [4.70-6.10 M/CMM] 12.5 g/dL *LOW* (02/10/15 2:48 AM) 13.5 g/dL *LOW* (02/09/15 4:56 AM) 14.2 g/dL (02/08/15 12:31 PM) Hgb [14.0-18.0 g/dL] 36.9 % *LOW* (02/10/15 2:48 AM) 41.7 % *LOW* (02/09/15 4:56 AM) 42.6 % (02/08/15 12:31 PM) Hct [42.0-54.0 %] 90.7 fL (02/10/15 2:48 AM) 92.9 fL (02/09/15 4:56 AM) 90.9 fL (02/08/15 12:31 PM) MCV [80.0-94.0 fL] 30.7 pg (02/10/15 2:48 AM) 30.1 pg (02/09/15 4:56 AM) 30.3 pg (02/08/15 12:31 PM) MCH [27.0-31.0 pg] 33.8 g/dL (02/10/15 2:48 AM) 32.4 g/dL (02/09/15 4:56 AM) 33.3 g/dL (02/08/15 12:31 PM) MCHC [32.0-36.0 g/dL] 13.7 % (02/10/15 2:48 AM) 13.8 % (02/09/15 4:56 AM) 13.9 % (02/08/15 12:31 PM) RDW [11.5-14.5 %] 132 K/CMM *LOW* (02/10/15 2:48 AM) 145 K/CMM (02/09/15 4:56 AM) 155 K/CMM (02/08/15 12:31 PM) Platelet [133-450 K/CMM] 10.8 fL *HI* (02/10/15 2:48 AM) 10.1 fL (02/09/15 4:56 AM) 10.7 fL *HI* (02/08/15 12:31 PM) MPV [7.4-10.4 fL] 79.6 % *HI* (02/10/15 2:48 AM) 90.0 % *HI* (02/09/15 4:56 AM) 85.9 % *HI* (02/08/15 12:31 PM) Segs [45.0-75.0 %] 11.2 % *LOW* (02/10/15 2:48 AM) 5.0 % *LOW* (02/09/15 4:56 AM) 10.4 % *LOW* (02/08/15 12:31 PM) Lymphocytes [20.0-40.0 %] 8.7 % (02/10/15 2:48 AM) 4.9 % (02/09/15 4:56 AM) 2.9 % (02/08/15 12:31 PM) Monocytes [2.0-12.0 %] 0.4 % (02/10/15 2:48 AM) 0.5 % (02/08/15 12:31 PM) 1.7 % (01/31/15 1:24 PM) Eosinophils [0.0-4.0 %] 0.1 % (02/10/15 2:48 AM) 0.1 % (02/09/15 4:56 AM) 0.3 % (02/08/15 12:31 PM) Basophils [0.0-1.0 %] 8.6 K/CMM *HI* (02/10/15 2:48 AM) 14.2 K/CMM *HI* (02/09/15 4:56 AM) 11.9 K/CMM *HI* (02/08/15 12:31 PM) Segs-Bands # [1.5-8.1 K/CMM] 1.2 K/CMM (02/10/15 2:48 AM) 0.8 K/CMM *LOW* (02/09/15 4:56 AM) 1.4 K/CMM (02/08/15 12:31 PM) Lymphocytes # [1.0-5.5 K/CMM] 0.9 K/CMM *HI* (02/10/15 2:48 AM) 0.8 K/CMM (02/09/15 4:56 AM) 0.4 K/CMM (02/08/15 12:31 PM) Monocytes # [0.0-0.8 K/CMM] 0.1 K/CMM (02/08/15 12:31 PM) 0.1 K/CMM (01/31/15 1:24 PM) Eosinophils # [0.0-0.5 K/CMM] 14.2 seconds (01/31/15 1:24 PM) PT [12.0-14.7 seconds] 1.07 (01/31/15 1:24 PM) INR [0.85-1.17] 32.2 seconds (01/31/15 1:24 PM) PTT [22.9-35.8 seconds] Immunizations No data available for this section Procedures No data available for this section Social History Social History Type Response Alcohol Current, Type Liquor. Frequency: 1-2 times per month. Smoking Status Never smoker; Exposure to Tobacco Smoke None; Cigarette Smoking Last 365 Days No; Reg Smoking Cessation Counseling No Assessment and Plan Extracted from: Title: [facility] Consult Note Author: Miguel Gonzales Date: 02/09/15 Patient: BRANONN JOHNSON Age: 59 years Sex: Male : 1955 [...] Histories Past Medical History: Active Enlarged prostate ([id number]) GERD - Gastro-esophageal reflux disease ([id number]) Colon polyps ([id number]) Resolved Rectal bleed ([id number]): Resolved. Bleeding hemorrhoid ([id number]): Resolved. Family History: Transplant Brother Comments: 01/31/2015 12:23 - Annette Ernst RN liver High blood pressure Father Mother Non-Hodgkin's lymphoma Brother Procedure history: No active procedure history items have been selected or recorded. Social History Social & Psychosocial Habits Alcohol 01/31/2015 Use: Current Type: [...] Ciprofloxacin- No reactions were documented., Allergies (2) ActiveReaction FlomaxNone Documented penicillinsNone Documented Current medications: (Selected) Inpatient Medications Ordered Cleocin HCl + Sodium Chloride 0.9% IV 100 mL: 600 mg, 4 mL, 208 ml/hr, IVPB, PRE OP Levsin SL: 0.125 mg, 1 tab, SL, Q4H, PRN: Bladder Spasm Friendship 5/325 oral tablet: 1 tab, PO, Q4H, PRN: Pain Score 4-6 Friendship 5/325 oral tablet: 2 tab, PO, Q4H, PRN: Pain Score 7-10 Robaxin: 1,000 mg, 2 tab, PO, Q8H Saline Flush 0.9%: 10 ml, IVP, PRN, PRN: Line Flush docusate sodium 100 mg oral capsule: 100 mg, 1 cap, PO, BID ondansetron: 4 mg, 2 mL, IVP, Q6H, PRN: Nausea & Vomiting oxybutynin: 5 mg, 1 tab, PO, [...] All Problems Colon polyps / SNOMED CT [id number] / Confirmed Enlarged prostate / SNOMED CT [id number] / Confirmed GERD - Gastro-esophageal reflux disease / SNOMED CT [id number] / Confirmed Resolved: Bleeding hemorrhoid / SNOMED CT [id number] Resolved: Rectal bleed / SNOMED CT [id number], Active Problems (3) Colon polyps Enlarged prostate [...] Signs (last 24 hrs) Last Charted Temp Oral98.1 DegF (FEB 09:) Heart Rate Wmhczynbgl63 bpm (FEB 09:) Resp Rate 18 BRMIN (FEB 09:) HVC356 mmHg (FEB 09:) DBP78 mmHg (FEB 09:) General: Alert and oriented, No acute distress. Eye: Pupils are equal, round and reactive to light. HENT: Normocephalic. Neck: Supple. Respiratory: Lungs are clear to auscultation. Cardiovascular: Normal rate. Gastrointestinal: Soft, Non-tender, Non-distended. Lymphatics: No lymphadenopathy neck, axilla, groin. Musculoskeletal Normal range of motion. Normal strength. No tenderness. No swelling. No deformity. Normal gait. Integumentary: Warm, Dry, [place]. Neurologic: Alert, Oriented, Normal sensory, Normal motor function, No focal deficits, Cranial Nerves II-XII are grossly intact. Cognition and Speech: Oriented, Speech clear and coherent, Functional cognition intact. Psychiatric: Cooperative, Appropriate mood & affect, Normal judgment. Review / Management Results review: Labs (Last four charted values) WBC H 15.7(FEB 09)H 13.8(FEB 08)8.1(JAN 31) Hgb L 13.5(FEB 09)14.2(FEB 08)15.6(JAN 31) Hct L 41.7(FEB 09)42.6(FEB 08)47.3(JAN 31) Plt 145(FEB 09)155(FEB 08)167(JAN 31) Na 137(FEB 09)142(FEB 08)143(JAN 31) K 4.5(FEB 09)3.7(FEB 08)4.3(JAN 31) CO2 L 22(FEB 09)25(FEB 08)27(JAN 31) Cl 103(FEB 09)107(FEB 08)106(JAN 31) Cr 1.2(FEB 09)1.2(FEB 08)1.1(JAN 31) BUN 16(FEB 09)15(FEB 08)19(JAN 31) Glucose Random H 116(FEB 09)H 149(FEB 08)L 67(JAN 31) Mg 2.1(JAN 31) Ca 8.8(FEB 09)L 8.2(FEB 08)9.3(JAN 31) PT 14.2(JAN 31) INR 1.07(JAN 31) PTT 32.2(JAN 31). Chest x-ray results ECG interpretation Impression and Plan Diagnosis 59 yo M with PMH of BPH and h/o prostitis, with resolving REYNOLD. Pt presented here for open suprapubic prostetectomy. APMS consulted for preoperative in regional block area thoracic (T10-11 epidural space) epidual for postoperative abd/pelvic pain and post-op pain control . Course: Progressing as expected. Orders Ropivicaine 0.1% with Fentantyl 2mcg @ 6ml/hr, BENEFITS CLERK 3ml Q30 min, total lockout 18ml/hr. Clinician colus 5ml.. Diagnosis Education and Follow-up: Counseled: Regarding treatment, Regarding medications. Plan:Multimodal Pain Control -Epidural discontinued this morning as the tubing became detached -Will discontinue tylenol and oxycodone -Start [place] 5mg tab, give 1 tab q4H prn for pain score 4-6, give 2 tabs q4h prn for pain score 7-10 -Start Robaxin 1000mg q8H APMS will continue to follow. Thank you for the consult. Please call [phone] with questions. Addendum APMS will sign off. No neurological deficits. by Miguel Avilez MD on 02/10/2015 08:44 Addendum I saw and examined the patient and discussed plan of care with the resident. I have by reviewed the note bellow and agree with the history, physical examination findings, Ioselevic assessment and plan of care. , Jonny Whitehead MD on 02/12/2015 11:05 Extracted from: Title: APMS Consult Note Author: Joseluis Mcneal MD Date: 02/08/15 Patient: BRANNON JOHNSON Age: 59 years Sex: Male : 1955 [...] Histories Past Medical History: Active Enlarged prostate ([id number]) GERD - Gastro-esophageal reflux disease ([id number]) Colon polyps ([id number]) Resolved Rectal bleed ([id number]): Resolved. Bleeding hemorrhoid ([id number]): Resolved. Family History: Transplant Brother Comments: 01/31/2015 12:23 - Annette Ernst RN liver High blood pressure Father Mother Non-Hodgkin's lymphoma Brother Procedure history: No active procedure history items have been selected or recorded. Social History Social & Psychosocial Habits Alcohol 01/31/2015 Use: Current Type: [...] Ciprofloxacin- No reactions were documented., Allergies (2) ActiveReaction FlomaxNone Documented penicillinsNone Documented Current medications: (Selected) Inpatient Medications Ordered [...] mg, 2 mL, IVP, Q8H, PRN: Nausea & Vomiting senna: 17.2 mg, 2 tab, PO, [...] All Problems Colon polyps / SNOMED CT [id number] / Confirmed Enlarged prostate / SNOMED CT [id number] / Confirmed GERD - Gastro-esophageal reflux disease / SNOMED CT [id number] / Confirmed, Active Problems (3) Colon polyps [...] No deformity. Normal gait. Integumentary: Warm, Dry, [place]. Neurologic: Alert, Oriented, Normal sensory, Normal motor function, No focal deficits, Cranial Nerves II-XII are grossly intact. Cognition and Speech: Oriented, Speech clear and coherent, Functional cognition intact. Psychiatric: Cooperative, Appropriate mood & affect, Normal judgment. Review / Management Results review: Labs (Last four charted values) WBC 8.1(JAN 31) Hgb 15.6(JAN 31) Hct 47.3(JAN 31) Plt 167(JAN 31) Na 143(JAN 31) K 4.3(JAN 31) CO2 27(JAN 31) Cl 106(JAN 31) Cr 1.1(JAN 31) BUN 19(JAN 31) Glucose Random L 67(JAN 31) Mg 2.1(JAN 31) Ca 9.3(JAN 31) PT 14.2(JAN 31) INR 1.07(JAN 31) PTT 32.2(JAN 31). Chest x-ray results ECG interpretation Impression and Plan Diagnosis 59 yo M with PMH of BPH and h/o prostitis, with resolving REYNOLD. Pt presenting here today for open suprapubic prostetectomy. APMS consulted for preoperative in regional block area thoracic (T10-11 epidural space) epidual for postoperative abd/pelvic pain. . Course: Progressing as expected. Orders Ropivicaine 0.1% with Fentantyl 2mcg @ 6ml/hr, BENEFITS CLERK 3ml Q30 min, total lockout 18ml/hr. Clinician colus 5ml.. Diagnosis Education and Follow-up: Counseled: Regarding treatment, Regarding medications. Addendum Teaching Addendum: by I saw and personally examined the patient and discussed the plan of care with the Sadi resident. I was physically present for the santoro portions of the procedure. Madeline ORTEGA on 02/11/2015 08:57
--- OUTSIDE RECORDS SUMMARY | 2019-02-05 06:05 | XMS REPORT | Summary of Care ---
Author Author [facility] Organization [facility] Address Unknown Phone Unavailable Encounter PATRICIA Lemus(RADHIKA) [id number] Date(s): 03/25/15 - 03/28/15 [facility] [address] [employer] provided by [employer] [facility] [place] [address]- Final: Urinary tract infection, site not specified Discharge Disposition: Home Attending Physician: Nick King MD Admitting Physician: Nick King MD Vital Signs 1 2 3 Most recent to oldest [Reference Range]: 180.34 cm (03/25/15 11:05 AM) 180.34 cm (03/25/15 10:45 AM) Height 91.004 kg (03/28/15 5:51 AM) 90.6 kg (03/27/15 6:22 AM) Current Weight 98.0 DegF (03/28/15 12:31 PM) 97.9 DegF (03/28/15 7:15 AM) 98.3 DegF (03/28/15 5:12 AM) Temperature Oral [96.4-99.1 DegF] 122/83 mmHg (03/28/15 12:31 PM) 126/87 mmHg (03/28/15 7:15 AM) 120/80 mmHg (03/28/15 5:12 AM) Blood Pressure [90-140/60-90 mmHg] 18 BRMIN (03/28/15 12:31 PM) 18 BRMIN (03/28/15 7:15 AM) 18 BRMIN (03/28/15 5:12 AM) Respiratory Rate [14-20 BRMIN] 82 bpm (03/28/15 12:31 PM) 66 bpm (03/28/15 7:15 AM) 60 bpm (03/28/15 5:12 AM) Peripheral Pulse Rate [60-100 bpm] 92.727 kg (03/25/15 11:05 AM) 92.784 kg (03/25/15 10:45 AM) Weight 28.51 m2 (03/25/15 11:05 AM) 28.53 m2 (03/25/15 10:45 AM) Body Mass Index Problem List Condition Effective Dates Status Health Status Informant Bleeding Resolved hemorrhoid(Confirmed ) Colon Active polyps(Confirmed) Enlarged Active prostate(Confirmed) GERD - Active Gastro-esophageal reflux disease(Confirmed) Rectal Resolved bleed(Confirmed) Allergies, Adverse Reactions, Alerts Substance Reaction Severity Status Flomax SV^Severe Active penicillins Active Medications acetaminophen 650 mg, 2 tab, Route: PO, Drug form: TAB, Q6H, Dosing Weight 92.727, kg, PRN Tung n 1-3/Temp > 100.4 F, Start date: 03/25/15 12:44:00, Duration: 30 day, Stop date: 04/24/15 12:43:00 Notes: Do not exceed 4 gm/day. 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), Start date: 03/25/15 20:00:00, Duration: 30 day, Stop date: 04/24/15 8:00:00 Notes: (Same as: Maxipime) MEDICATION WASTE Product Size: 2000 mgProduc t Wasted: ___ mg Start Date: 03/25/15 Stop Date: 03/28/15 Status: Discontinued docusate 100 mg, 1 cap, Route: PO, Drug form: CAP, BID, Dosing Weight 92.727, kg, PRN Con stipation, Start date: 03/25/15 12:45:00, Duration: 30 day, Stop date: 04/24/15 12:44:00 Notes: (Same as: Colace) (Do Not Crush) Start Date: 03/25/15 Stop Date: 03/28/15 Status: Discontinued influenza virus vaccine, inactivated 0.5 mL, Route: IM, Drug Form: SUSP, Daily, Start date: 03/26/15 9:00:00, Jaylao n: 1 doses or times, Stop date: 03/26/15 9:00:00 Notes: (Same as: Fluzone Quadrivalent)For 3 years of age and older (0.5 mL IM)Sh rajesh well before use Start Date: 03/26/15 Stop Date: 03/26/15 Status: Completed lidocaine 1% 50 mg, 5 mL, Route: INTRADERM, Drug Form: INJ, Dosing Weight 92.727, kg, ONCALL, Start date: 03/28/15 12:00:00, Duration: 30 day, Stop date: 04/27/15 10:59:00 Notes: (Same as: Xylocaine) Start Date: 03/28/15 Stop Date: 03/28/15 Status: Discontinued Saline Flush 0.9% 10 mL, Route: IVP, Drug Form: INJ, Dosing Weight 92.727, kg, Q8H, Start date: 16:00:00, Duration: 30 day, Stop date: 04/27/15 8:00:00 Notes: (Same as: BD Posiflush) Start Date: 03/28/15 Stop Date: 03/28/15 Status: Discontinued Saline Flush 0.9% 10 mL, Route: IVP, Drug Form: INJ, Dosing Weight 92.727, kg, PRN, PRN Line Flush , Start date: 03/28/15 11:22:00, Duration: 30 day, Stop date: 04/27/15 10:21:00 Notes: (Same as: BD Posiflush) Start Date: 03/28/15 Stop Date: 03/28/15 Status: Discontinued Tylenol 325 mg oral tablet 325 mg=1 tab, PO, Q4H, PRN Pain Start Date: 03/25/15 Status: Ordered Results ELECTROLYTES 1 2 3 Most recent to oldest [Reference Range]: 138 mEq/L (03/27/15 5:37 AM) 138 mEq/L (03/26/15 7:26 AM) 140 mEq/L (03/25/15 11:37 AM) Sodium Lvl [135-145 mEq/L] 4.1 mEq/L (03/27/15:37 AM) 4.0 mEq/L (03/26/15:26 AM) 4.0 mEq/L (03/25/15:37 AM) Potassium Lvl [3.5-5.1 mEq/L] 106 mEq/L (03/27/15:37 AM) 106 mEq/L (03/26/15:26 AM) 108 mEq/L (03/25/1537 AM) Chloride Lvl [95-109 mEq/L] 25 mEq/L (03/27/15:37 AM) 23 mEq/L *LOW* (03/26/15: AM) 23 mEq/L *LOW* (03/25/15 AM) CO2 [24-32 mEq/L] 11.1 mEq/L (03/27/15:37 AM) 13.0 mEq/L (03/26/15: AM) 13.0 mEq/L (03/25/15:37 AM) AGAP [10.0-20.0 mEq/L] CHEM PANEL 1 2 3 Most recent to oldest [Reference Range]: 1.1 mg/dL (03/27/15:37 AM) 1.0 mg/dL (03/26/15: AM) 1.0 mg/dL (03/25/1537 AM) Creatinine Lvl [0.5-1.4 mg/dL] 72 mL/min/1.73m2 1 *NA* (03/27/15:37 AM) 85 mL/min/1.73m2 2 *NA* (03/26/15: AM) 83 mL/min/1.73m2 3 *NA* (03/25/15:37 AM) eGFR 14 mg/dL (03/27/15:37 AM) 16 mg/dL (03/26/15: AM) 18 mg/dL (03/25/15:37 AM) BUN [7-22 mg/dL] 93 mg/dL (03/27/15:37 AM) 97 mg/dL (03/26/15:26 AM) 91 mg/dL (03/25/15:37 AM) Glucose Lvl [70-99 mg/dL] 9.1 mg/dL (03/27/15 5:37 AM) 9.1 mg/dL (03/26/15 7:26 AM) 8.9 mg/dL (03/25/15 11:37 AM) Calcium Lvl [8.5-10.5 mg/dL] 1Result Comment: The eGFR is calculated [...] be mul tiplied by the estimated BMI. URINE AND STOOL 1 2 3 Most recent to oldest [Reference Range]: Clear (03/25/15 3:04 PM) UA Turbidity [Clear] Light Yellow *NA* (03/25/15 3:04 PM) UA Color [Yellow] 7.0 (03/25/15 3:04 PM) UA pH [5.0-8.0] 1.006 (03/25/15 3:04 PM) UA Spec Grav [<=1.030] Negative mg/dL *NA* (03/25/15 3:04 PM) UA Glucose [Negative mg/dL] Moderate *ABN* (03/25/15 3:04 PM) UA Blood [Negative] Negative mg/dL *NA* (03/25/15 3:04 PM) UA Ketones [Negative mg/dL] Negative mg/dL (03/25/15 3:04 PM) UA Protein [Negative mg/dL] <=1.0 mg/dL *NA* (03/25/15 3:04 PM) UA Urobilinogen [0.1-1.0 mg/dL] Negative *NA* (03/25/15 3:04 PM) UA Bili [Negative] Moderate *ABN* (03/25/15 3:04 PM) UA Leuk Est [Negative] Negative (03/25/15 3:04 PM) UA Nitrite [Negative] 32 /HPF *HI* (03/25/15 3:04 PM) UA WBC [0-5 /HPF] 58 /HPF *HI* (03/25/15 3:04 PM) UA RBC [0-2 /HPF] None Seen *NA* (03/25/15 3:04 PM) UA Sq Epi Few /LPF *NA* (03/25/15 3:04 PM) UA Mucus [None Seen /LPF] HEMATOLOGY 1 2 3 Most recent to oldest [Reference Range]: 6.8 K/CMM (03/27/15 5:37 AM) 5.3 K/CMM (03/26/15: AM) 6.0 K/CMM (03/25/15:37 AM) WBC [3.7-10.4 K/CMM] 5.53 M/CMM (03/27/15:37 AM) 5.33 M/CMM (03/26/15:26 AM) 5.08 M/CMM (03/25/15:37 AM) RBC [4.70-6.10 M/CMM] 16.9 g/dL (03/27/15:37 AM) 16.0 g/dL (03/26/15: AM) 15.0 g/dL (03/25/15:37 AM) Hgb [14.0-18.0 g/dL] 50.7 % (03/27/15:37 AM) 48.0 % (03/26/15: AM) 45.9 % (03/25/15:37 AM) Hct [42.0-54.0 %] 91.6 fL (03/27/15:37 AM) 90.0 fL (03/26/15: AM) 90.3 fL (03/25/15:37 AM) MCV [80.0-94.0 fL] 30.5 pg (03/27/15:37 AM) 30.0 pg (03/26/15:26 AM) 29.4 pg (03/25/15:37 AM) MCH [27.0-31.0 pg] 33.2 g/dL (03/27/15:37 AM) 33.3 g/dL (03/26/15:26 AM) 32.6 g/dL (03/25/15:37 AM) MCHC [32.0-36.0 g/dL] 13.6 % (03/27/15:37 AM) 13.6 % (03/26/15:26 AM) 13.2 % (03/25/15:37 AM) RDW [11.5-14.5 %] 149 K/CMM (03/27/15:37 AM) 141 K/CMM (03/26/15:26 AM) 141 K/CMM (03/25/15 11:37 AM) Platelet [133-450 K/CMM] 9.7 fL (03/27/15:37 AM) 9.8 fL (03/26/15:26 AM) 10.2 fL (03/25/15 11:37 AM) MPV [7.4-10.4 fL] 63.3 % (03/27/15:37 AM) 58.4 % (03/26/15:26 AM) 65.0 % (03/25/15 11:37 AM) Segs [45.0-75.0 %] 22.8 % (03/27/15 5:37 AM) 27.1 % (03/26/15:26 AM) 23.0 % (03/25/15 11:37 AM) Lymphocytes [20.0-40.0 %] 10.5 % (03/27/15:37 AM) 10.2 % (03/26/15:26 AM) 8.3 % (03/25/15 11:37 AM) Monocytes [2.0-12.0 %] 2.9 % (03/27/15 5:37 AM) 3.7 % (03/26/15:26 AM) 3.0 % (03/25/15 11:37 AM) Eosinophils [0.0-4.0 %] 0.5 % (03/27/15 5:37 AM) 0.6 % (03/26/15:26 AM) 0.7 % (03/25/15:37 AM) Basophils [0.0-1.0 %] 4.3 K/CMM (03/27/15 5:37 AM) 3.1 K/CMM (03/26/15:26 AM) 3.9 K/CMM (03/25/15 11:37 AM) Segs-Bands # [1.5-8.1 K/CMM] 1.5 K/CMM (03/27/15 5:37 AM) 1.4 K/CMM (03/26/15 7:26 AM) 1.4 K/CMM (03/25/15 11:37 AM) Lymphocytes # [1.0-5.5 K/CMM] 0.7 K/CMM (03/27/15 5:37 AM) 0.5 K/CMM (03/26/15 7:26 AM) 0.5 K/CMM (03/25/15 11:37 AM) Monocytes # [0.0-0.8 K/CMM] 0.2 K/CMM (03/27/15 5:37 AM) 0.2 K/CMM (03/26/15 7:26 AM) 0.2 K/CMM (03/25/15 11:37 AM) Eosinophils # [0.0-0.5 K/CMM] Immunizations Vaccine Date Refusal Reason influenza virus vaccine, inactivated 03/26/15 Procedures Procedure Date Related Diagnosis Body Site Prostatectomy 02/08/15 Social History Social History Type Response Alcohol Current, Type Liquor. Frequency: 1-2 times per month. Smoking Status Never smoker; Exposure to Tobacco Smoke None; Cigarette Smoking Last 365 Days No; Reg Smoking Cessation Counseling No Assessment and Plan Extracted from: Title: [facility] Author: Nessa Anderson Date: 03/28/15 Gabriella ORTEGA Admitting Physician: Dr. King Date of Admission: 03/25/15 Date of Discharge: 03/28/15 Admission Diagnosis: MDR UTI Secondary Diagnosis: None Discharge Diagnosis: Same Consultations: Infectious Disease Operative Procedures: None Hospital Course: Mr. Barcenas is a pleasant 59yoM with no PMH who presented on 12/31/14 in [facility] x 1 day. Almendarez was placed by ER staff with >1000 [...] He was admitted for IV abx with recommend ations for infectious disease. He was d/c home with PICC and Home health for IV medication x 2 weeks. Discharge Instructions Activity: As tolerated Diet: Regular Medications: Cefepime 2gm BID Follow-Up: Dr. King in 6 months Extracted from: Title: [facility] Author: Nessa Anderson Date: 03/28/15 Gabriella ORTEGA Impression and Plan 59yoM with PMH of BPH/AUR s/p SPP and B scalpless vasectomy with MDR UTI requring IV abx - ID recommendations appreciated - PICC line and HH order placed. Will call PICC team and CM today in order to get HH arranged - Continue IV abx - [facility] with questions Extracted from: Title: [facility] Author: Nessa Anderson Date: 03/25/15 Gabriella ORTEGA Impression and Plan 59yoM with PMH of BPH/AUR s/p SPP and B scalpless vasectomy with UTI requring IV abx - Admit to Urology under Dr. King - Regular diet - Continue home medication - PICC line consult - ID consult for IV abx regimen and duration - [facility] with consults
--- OUTSIDE RECORDS SUMMARY | 2019-02-05 06:05 | XMS REPORT | Summary of Care ---
Author Author [facility] Organization [facility] Address Unknown Phone Unavailable Encounter PATRICIA Lemus(RADHIKA) [id number] Date(s): 12/31/14 - 01/01/15 [facility] [address] [employer] provided by [employer] [facility] [place] [address]- Discharge Disposition: Home Attending Physician: Suzanne Truong MD Admitting Physician: Suzanne Truong MD Vital Signs 1 2 3 Most recent to oldest [Reference Range]: 177.8 cm (12/31/14 9:44 PM) 165.1 cm (12/31/14 12:40 PM) Height 1 2 3 Most recent to oldest [Reference Range]: 98.0 DegF (01/01/15 11:22 AM) 97.4 DegF (01/01/15 7:52 AM) 98.4 DegF (01/01/15 3:19 AM) Temperature Oral [96.4-99.1 DegF] 1 2 3 Most recent to oldest [Reference Range]: 122/85 mmHg (01/01/15 11:22 AM) 136/91 mmHg (01/01/15 7:52 AM) 134/86 mmHg (01/01/15 3:19 AM) Blood Pressure [90-140/60-90 mmHg] 1 2 3 Most recent to oldest [Reference Range]: 18 BRMIN (01/01/15 11:22 AM) 18 BRMIN (01/01/15 7:52 AM) 20 BRMIN (01/01/15 3:19 AM) Respiratory Rate [14-20 BRMIN] 1 2 3 Most recent to oldest [Reference Range]: 95 bpm (01/01/15 11:22 AM) 79 bpm (01/01/15 7:52 AM) 73 bpm (01/01/15 3:19 AM) Peripheral Pulse Rate [60-100 bpm] 1 2 3 Most recent to oldest [Reference Range]: 87.727 kg (12/31/14 9:44 PM) 91.364 kg (12/31/14 12:40 PM) Weight 1 2 3 Most recent to oldest [Reference Range]: 27.75 m2 (12/31/14 9:44 PM) 33.52 m2 (12/31/14 12:40 PM) Body Mass Index Problem List Condition Effective Dates Status Health Status Informant Bleeding Resolved hemorrhoid(Confirmed ) Enlarged Resolved prostate(Confirmed) GERD - Resolved Gastro-esophageal reflux disease(Confirmed) Rectal Resolved bleed(Confirmed) Allergies, Adverse Reactions, Alerts Substance Reaction Severity Status ciprofloxacin Active penicillins Active Medications 1/2 NS 1,000 mL 1,000 mL, Rate: 200 ml/hr, Infuse over: 5 hr, Route: IV, Dosing Weight 87.727 kg , Total Volume: 1,000, Start date: 12/31/14 22:53:00, Duration: 30 day, Stop richelle e: 01/30/15 22:52:00 Start Date: 12/31/14 Stop Date: 01/01/15 Status: Discontinued acetaminophen 650 mg, 2 tab, Route: PO, Drug form: TAB, Q4H, Dosing Weight 87.727, kg, PRN Tung n 1-3/Temp > 100.4 F, Start date: 12/31/14 22:35:00, Duration: 30 day, Stop date: 01/30/15 22:34:00 Notes: Do not exceed 4 gm/day. (Same as: Tylenol) Start Date: 12/31/14 Stop Date: 01/01/15 Status: Discontinued acetaminophen 325 mg oral tablet 650 mg=2 tab, PO, Q4H, PRN Pain 1-3/Temp > 100.4 F, 0 Refill(s) Start Date: 01/01/15 Status: Ordered acetaminophen-hydrocodone 325 mg-5 mg oral tablet 1 tab, Route: PO, Drug Form: TAB, Dosing Weight 87.727, kg, Q4H, PRN Pain Score 4-6, Start date: 12/31/14 22:35:00, Duration: 30 day, Stop date: 01/30/15 22:34: 00 Notes: (Same as: [place] 325/5) Do not exceed 4gm/day of acetaminophen. Start Date: 12/31/14 Stop Date: 01/01/15 Status: Discontinued acetaminophen-hydrocodone 325 mg-5 mg oral tablet 2 tab, Route: PO, Drug Form: TAB, Dosing Weight 87.727, kg, Q4H, PRN Pain Score 7-10, Start date: 12/31/14 22:35:00, Duration: 30 day, Stop date: 01/30/15 22:34 :00 Notes: (Same as: [place] 325/5) Do not exceed 4gm/day of acetaminophen. Start Date: 12/31/14 Stop Date: 01/01/15 Status: Discontinued docusate 100 mg, 1 cap, Route: PO, Drug form: CAP, BID, Dosing Weight 87.727, kg, PRN Con stipation, Start date: 12/31/14 22:35:00, Duration: 30 day, Stop date: 01/30/15 22:34:00 Notes: (Same as: Colace) (Do Not Crush) Start Date: 12/31/14 Stop Date: 01/01/15 Status: Discontinued Flomax 0.4 mg, 1 cap, Route: PO, Drug form: CAP, Daily, Dosing Weight 91.364, kg, Start date: 12/31/14 21:46:00, Duration: 30 day, Stop date: 01/30/15 9:00:00 Notes: (Same As: Flomax) "Do Not Crush" Start Date: 12/31/14 Stop Date: 01/01/15 Status: Discontinued magnesium citrate 300 ml, Route: PO, Drug Form: LIQ, Dosing Weight 87.727, kg, ONCE, Start date: 0 01/01/15 10:12:00, Stop date: 01/01/15 10:12:00 Notes: (Same as: Citrate of Magnesia) Start Date: 01/01/15 Stop Date: 01/01/15 Status: Completed MiraLax 17 gm, 1 pkt, Route: PO, Drug form: PWDR, Daily, Dosing Weight 87.727, kg, Start date: 01/01/15 9:00:00, Duration: 30 day, Stop date: 01/30/15 9:00:00 Notes: Dissolve in 8 oz of water or juice.(Same as: Miralax) Start Date: 01/01/15 Stop Date: 01/01/15 Status: Discontinued morphine Sulfate 4 mg, Route: IVP, Drug form: INJ, ONCE, Dosing Weight 91.364, kg, Priority: STAT , Start date: 12/31/14 18:16:00, Stop date: 12/31/14 18:16:00 Start Date: 12/31/14 Stop Date: 12/31/14 Status: Completed NS (Bolus) IV 1,000 mL, 1,000 ml/hr, Infuse Over: 1 hr, Route: IV, 1,000, Drug form: INJ, ONCE , Priority: STAT, Dosing Weight 91.364 kg, Start date: 12/31/14 20:22:00, Durati on: 1 doses or times, Stop date: 12/31/14 20:22:00 Start Date: 12/31/14 Stop Date: 12/31/14 Status: Completed NS 1,000 mL 1,000 mL, Rate: 200 ml/hr, Infuse over: 5 hr, Route: IV, Dosing Weight 87.727 kg , Total Volume: 1,000, Start date: 12/31/14 22:36:00, Duration: 30 day, Stop richelle e: 01/30/15 22:35:00 Start Date: 12/31/14 Stop Date: 12/31/14 Status: Discontinued ondansetron 4 mg, 2 mL, Route: IVP, Drug form: INJ, Q6H, Dosing Weight 87.727, kg, PRN Nause a & Vomiting, Start date: 12/31/14 22:35:00, Duration: 30 day, Stop date: 01/30/15 22:34:00 Notes: (Same as: Zofran) MEDICATION WASTE Product Size: 4 mgProduct Was xeina: ___ mg Start Date: 12/31/14 Stop Date: 01/01/15 Status: Discontinued Phenergan 12.5 mg, 0.5 mL, Route: IVPB, Drug form: INJ, ONCE, Dosing Weight 87.727, kg, [place] N Nausea & Vomiting, Start date: 01/01/15 10:58:00, Stop date: 01/31/15 10:57:00 Notes: Do not give IV push. (Same as: Phenergan) Start Date: 01/01/15 Stop Date: 01/01/15 Status: Completed polyethylene glycol 3350 oral powder for reconstitution 17 gm, PO, Daily, X 14 day, # 255 gm, 0 Refill(s) Start Date: 01/01/15 Stop Date: 01/15/15 Status: Ordered tamsulosin 0.4 mg oral capsule 0.4 mg=1 cap, PO, Daily, # 30 cap, 0 Refill(s) Start Date: 01/01/15 Stop Date: 01/31/15 Status: Ordered Zofran 4 mg, Route: IVP, Drug form: INJ, ONCE, Dosing Weight 91.364, kg, Priority: STAT , Start date: 12/31/14 18:21:00, Stop date: 12/31/14 18:21:00 Start Date: 12/31/14 Stop Date: 12/31/14 Status: Completed Results ELECTROLYTES Most recent to 1 2 oldest [Reference Range]: Sodium Lvl [135-145 145 mEq/L 147 mEq/L mEq/L] (01/01/15 2:46 AM) *HI* (12/31/14 4:44 PM) Potassium Lvl 4.4 mEq/L 5.0 mEq/L [3.5-5.1 mEq/L] (01/01/15 2:46 AM) (12/31/14 4:44 PM) Chloride Lvl [95-109 116 mEq/L 112 mEq/L mEq/L] *HI* *HI* (01/01/15 2:46 AM) (12/31/14 4:44 PM) CO2 [24-32 mEq/L] 19 mEq/L 20 mEq/L *LOW* *LOW* (01/01/15 2:46 AM) (12/31/14 4:44 PM) AGAP [10.0-20.0 14.4 mEq/L 20.0 mEq/L mEq/L] (01/01/15 2:46 AM) (12/31/14 4:44 PM) CHEM PANEL Most recent to 1 2 oldest [Reference Range]: Creatinine Lvl 1.7 mg/dL 5.3 mg/dL [0.5-1.4 mg/dL] *HI* *HI* (01/01/15 2:46 AM) (12/31/14 4:44 PM) eGFR 43 mL/min/1.73m2 1 11 mL/min/1.73m2 2 *NA* *NA* (01/01/15 2:46 AM) (12/31/14 4:44 PM) BUN [7-22 mg/dL] 29 mg/dL 64 mg/dL *HI* *HI* (01/01/15 2:46 AM) (12/31/14 4:44 PM) Glucose Lvl [70-99 108 mg/dL 101 mg/dL mg/dL] *HI* *HI* (01/01/15 2:46 AM) (12/31/14 4:44 PM) Total Protein 8.4 g/dL [6.4-8.4 g/dL] (12/31/14 4:44 PM) Albumin Lvl [3.5-5.0 4.5 g/dL g/dL] (12/31/14 4:44 PM) Globulin [2.0-4.0 3.9 g/dL g/dL] (12/31/14 4:44 PM) A/G Ratio [0.7-1.6] 1.2 (12/31/14 4:44 PM) Calcium Lvl 9.0 mg/dL 10.5 mg/dL [8.5-10.5 mg/dL] (01/01/15 2:46 AM) (12/31/14 4:44 PM) Phosphorus [2.5-4.5 3.0 mg/dL mg/dL] (01/01/15 2:46 AM) Magnesium Lvl 1.9 mg/dL [1.8-2.4 mg/dL] (01/01/15 2:46 AM) ALT [0-65 unit/L] 35 unit/L (12/31/14 4:44 PM) AST [0-37 unit/L] 45 unit/L *HI* (12/31/14 4:44 PM) Alk Phos [39-136 46 unit/L unit/L] (12/31/14 4:44 PM) Bili Total [0.2-1.3 0.8 mg/dL mg/dL] (12/31/14 4:44 PM) Bili Direct [0.0-0.3 0.1 mg/dL mg/dL] (12/31/14 4:44 PM) Bili Indirect 0.7 mg/dL [0.0-1.0 mg/dL] (12/31/14 4:44 PM) 1Result Comment: The eGFR is calculated using [...] by the estimated BMI. URINE AND STOOL Most recent to 1 2 oldest [Reference Range]: UA Turbidity [Clear] Clear (12/31/14 1:21 PM) UA Color [Yellow] Yellow *NA* (12/31/14 1:21 PM) UA pH [5.0-8.0] 6.0 (12/31/14 1:21 PM) UA Spec Grav 1.010 [<=1.030] (12/31/14 1:21 PM) UA Glucose Negative [Negative] (12/31/14 1:21 PM) UA Blood [Negative] Trace *ABN* (12/31/14 1:21 PM) UA Ketones Negative [Negative] *NA* (12/31/14 1:21 PM) UA Protein Negative [Negative] (12/31/14 1:21 PM) UA Urobilinogen 0.2 EU/dL [0.1-1.0 EU/dL] (12/31/14 1:21 PM) UA Bili [Negative] Negative *NA* (12/31/14 1:21 PM) UA Leuk Est Negative [Negative] (12/31/14 1:21 PM) UA Nitrite Negative [Negative] (12/31/14 1:21 PM) UA WBC [None Seen 0-2 /HPF /HPF] (12/31/14 1:21 PM) UA RBC [0-2 /HPF] 0-2 /HPF (12/31/14 1:21 PM) UA Bacteria [None Occasional /HPF Seen /HPF] (12/31/14 1:21 PM) UA Sq Epi [Few] None Seen (12/31/14 1:21 PM) Micro? Performed (12/31/14 1:21 PM) HEMATOLOGY Most recent to 1 2 oldest [Reference Range]: WBC [3.7-10.4 K/CMM] 10.1 K/CMM 10.5 K/CMM (01/01/15 2:46 AM) *HI* (12/31/14 4:44 PM) RBC [4.70-6.10 5.29 M/CMM 5.68 M/CMM M/CMM] (01/01/15 2:46 AM) (12/31/14 4:44 PM) Hgb [14.0-18.0 g/dL] 16.2 g/dL 17.4 g/dL (01/01/15 2:46 AM) (12/31/14 4:44 PM) Hct [42.0-54.0 %] 47.1 % 52.0 % (01/01/15 2:46 AM) (12/31/14 4:44 PM) MCV [80.0-94.0 fL] 88.9 fL 91.6 fL (01/01/15 2:46 AM) (12/31/14 4:44 PM) MCH [27.0-31.0 pg] 30.5 pg 30.7 pg (01/01/15 2:46 AM) (12/31/14 4:44 PM) MCHC [32.0-36.0 34.3 g/dL 33.5 g/dL g/dL] (01/01/15 2:46 AM) (12/31/14 4:44 PM) RDW [11.5-14.5 %] 13.1 % 13.0 % (01/01/15 2:46 AM) (12/31/14 4:44 PM) Platelet [133-450 145 K/CMM 153 K/CMM K/CMM] (01/01/15 2:46 AM) (12/31/14 4:44 PM) MPV [7.4-10.4 fL] 9.5 fL 9.4 fL (01/01/15 2:46 AM) (12/31/14 4:44 PM) Segs [45.0-75.0 %] 70.2 % 79.0 % (01/01/15 2:46 AM) *HI* (12/31/14 4:44 PM) Lymphocytes 15.9 % 10.2 % [20.0-40.0 %] *LOW* *LOW* (01/01/15 2:46 AM) (12/31/14 4:44 PM) Monocytes [2.0-12.0 10.9 % 7.7 % %] (01/01/15 2:46 AM) (12/31/14 4:44 PM) Eosinophils [0.0-4.0 2.5 % 2.7 % %] (01/01/15 2:46 AM) (12/31/14 4:44 PM) Basophils [0.0-1.0 0.5 % 0.4 % %] (01/01/15 2:46 AM) (12/31/14 4:44 PM) Segs-Bands # 7.1 K/CMM 8.3 K/CMM [1.5-8.1 K/CMM] (01/01/15 2:46 AM) *HI* (12/31/14 4:44 PM) Lymphocytes # 1.6 K/CMM 1.1 K/CMM [1.0-5.5 K/CMM] (01/01/15 2:46 AM) (12/31/14 4:44 PM) Monocytes # [0.0-0.8 1.1 K/CMM 0.8 K/CMM K/CMM] *HI* (12/31/14 4:44 PM) (01/01/15 2:46 AM) Eosinophils # 0.3 K/CMM 0.3 K/CMM [0.0-0.5 K/CMM] (01/01/15 2:46 AM) (12/31/14 4:44 PM) Immunizations No data available for this section Procedures No data available for this section Social History Social History Type Response Smoking Status Never smoker; Exposure to Tobacco Smoke None; Cigarette Smoking Last 365 Days No; Reg Smoking Cessation Counseling No Assessment and Plan Extracted from: Title: [facility] Author: Nessa Anderson Date: 01/01/15 Gabriella ORTEGA Impression and Plan Mr. Barcenas is a pleasant 59yoM who presents in [facility] with obstructive uropahty, B HUN and REYNOLD, now improving -Continue zelaya catheter upon discharge. -Will need to be d/c home with flomax -If patient urine remains without clots and clear, he can be discharged home from urology standpoint -Will need to f/u in 1-2 weeks in urology clinic [phone] Extracted from: Title: Hospitalist History and Author: Jazmin Al MD Date: 12/31/14 Physical Assessment/Plan 59 yo M with PMH of [...]
[2019-02-05 08:55] VITALS: BP 129/85
--- NOTE | 2019-02-05 12:45 | Operative Report ---
DATE OF PROCEDURE: 02/05/2019 SURGEON: Moisés Day MD PROCEDURE: Colonoscopy and polypectomy. INDICATIONS FOR COLONOSCOPY: Colorectal cancer screening. MEDICATIONS: The patient was done under MAC, please see anesthesiologist's note. PROCEDURE IN DETAIL: With the patient in left lateral decubitus position, a flexible fiberoptic Olympus colonoscope was inserted into the rectum with ease and advanced all the way to the cecum. The scope was then withdrawn slowly. Mucosa overlying the cecum appeared to be within normal limits. One polyp was removed with the cold biopsy forceps from the ascending colon. The transverse, descending, and sigmoid appeared to be within normal limits. Two minute hyperplastic-appearing polyps were removed per the hot biopsy forceps from the rectum. The scope was then retroflexed into the distal rectum and small internal hemorrhoids were noted, none of which was actively bleeding. The scope was then straightened out, it was subsequently withdrawn, and the patient tolerated the procedure well. IMPRESSION: 1. Ascending colon polyp, removed per cold biopsy forceps. 2. Rectal polyps x2, hot biopsied. 3. Internal hemorrhoids, none actively bleeding. PLAN: Follow up histology. Initiate high-fiber, low-fat diet. Initiate high-fiber supplement. The patient might benefit from a followup colonoscopy in 5 years. Moisés Day MD [facility] [place]/JERMAINE /[id number] cc: Alfonso Fay DO
== END | disposition home or self-care (01) ==
LOC: OR 05:59
PROVIDERS: ATTEND Internal Medicine Gastroenterology
DX: Z12.11 Encounter for screening for malignant neoplasm of colon (principal); D12.2 Benign neoplasm of ascending colon; K62.1 Rectal polyp; K64.8 Other hemorrhoids; K21.9 Gastro-esophageal reflux disease without esophagitis; K44.9 Diaphragmatic hernia without obstruction or gangrene; K31.89 Other diseases of stomach and duodenum; R03.0 Elevated blood-pressure reading, without diagnosis of hypertension; Z88.0 Allergy status to penicillin; Z01.810 Encounter for preprocedural cardiovascular examination; Z68.29 Body mass index [BMI] 29.0-29.9, adult; Z87.01 Personal history of pneumonia (recurrent)
CPT/HCPCS: 45380; 45384; 93005; J1610; J2250; J2405; J2704; J3010; 45378

== ENCOUNTER → 2021-05-03 | Outpatient (CLI) | payer BC ==
[~2021-05-03] MED LIST changes: -FENTANYL CITRATE/PF 100MCG/2 ML INJ ONE; -GLUCAGON FOR INJ 1 MG VIAL ONE; -HYOSCYAMINE 0.125 MG TAB ONE; -MIDAZOLAM HCL 2 MG/2 ML VIAL ONE; -ONDANSETRON HCL INJ 2MG/ML 2ML 2 MG/ML VIAL ONE; -PROPOFOL IV EMULSION 10 MG/ML 50 ML VIAL ONE
== END ==
LOC: RAD 09:52
PROVIDERS: ATTEND Family Medicine
DX: R05.8 Other specified cough (principal)
CPT/HCPCS: 71046